=== PATIENT | male | born 1990 | race Caucasian/White ===

== ENCOUNTER 2016-06-02 14:32 | Inpatient (IN) | payer OTHER ==
[~2016-06-02] VITALS: Ht 177.8 cm; Wt 62.6 kg
--- NOTE | 2016-06-02 14:46 | NUR ---
RECEIVED 25 YO MALE BIBA. PT WAS PASSEN[place] IN CAR ON [address] WITH HIS MOTHER DRIVING WHEN HE REPORTEDLY HAD SEIZURE LIKE ACTIVITY. ACCORDING TO REPORT, PT DID NOT HAVE A POST ICTAL STATE. PT ADMITS TO DRINKING ETOH DAILY AND DID NOT HAVE ANY ALCOHOL X 2 DAYS. PT ALSO TAKES XANAX 4 MG EVERY DAY AND HAS NOT TAKEN ANY XANAX X 4 DAYS BECAUSE HE RAN OUT. PT EVALUATED BY VERÓNICA اعلراقي UPON ARRIVAL
--- NOTE | 2016-06-02 14:51 | ED AMS/SEIZURE/WEAK/DIZZY ---
History of Present Illness General Chief Complaint: General Adult Stated Complaint: BIBA FOR ?SEIZURE LIKE ACTIVITY Source: patient, EMS Exam Limitations: no limitations Vital Signs & Intake/Output Vital Signs & Intake/Output Vital Signs Date Time Temp Pulse Resp B/P Pulse O2 O2 Flow FiO2 Ox Delivery Rate 06/04 1100 98.0 147 26 168/103 06/04 1000 97.8 122 22 161/88 / 0947 97.8 122 20 161/84 / 0938 97.8 122 20 161/84 / 0900 97.8 122 20 161/84 /03 0800 97.8 114 30 162/94 / 0800 97.8 114 30 162/94 100 Room Air Room Air 06/04 0800 100 Room Air Room Air 06/04 0745 97.8 122 22 160/88 / 0600 98.7 140 28 164/110 / 0400 98.1 124 22 165/85 06/04 0347 98.0 108 24 170/90 98 Room Air 06/03 2327 98.3 100 20 142/92 97 Room Air 06/03 1645 98.2 101 19 144/94 98 Room Air ED Intake and Output 06/04 0000 06/03 1200 Intake Total 0 1400 Output Total Balance 2049 1400 Intake, IV 1000 1000 Intake, Oral 1050 400 Allergies Coded Allergies: No Known Allergies (06/02/16) Reconcile Medications Alprazolam (Xanax) 1 MG TABLET 1 TAB PO TID ANXIETY (Reported) Fluoxetine HCl 20 MG TABLET 1 TAB PO Q8 ANXIETY (Reported) Zolpidem Tartrate (Ambien) 5 MG TABLET 1 TAB PO QPMP SLEEP AID (Reported) Triage Note: RECEIVED 25 YO MALE BIBA. PT WAS [place]EN[place] IN CAR ON [address] WITH HIS MOTHER DRIVING WHEN HE REPORTEDLY HAD SEIZURE LIKE ACTIVITY. ACCORDING TO REPORT, PT DID NOT HAVE A POST ICTAL STATE. PT ADMITS TO DRINKING ETOH DAILY AND DID NOT HAVE ANY ALCOHOL X 2 DAYS. PT ALSO TAKES XANAX 4 MG EVERY DAY AND HAS NOT TAKEN ANY XANAX X 4 DAYS BECAUSE HE RAN OUT. PT EVALUATED BY VERÓNICA العراقي UPON ARRIVAL Triage Nurses Notes Reviewed? yes HPI: Prior to arrival this 25-year-old male was in the car with his mother driving when he had a sudden episode of flashing bright lights and then loss of consciousness. According to mother, from what EMS is said, he had seizure-like activity which generalized shaking that lasted a few minutes. Patient states he had no recollection of the events and woke up confused and nauseous. He vomited once on arrival here. He states that he has no medical problems however he continued to himself an alcoholic, drinking daily about a handful of vodka he splits with his girlfriend, he also takes Xanax which is prescribed to him 4 mg per day. He has not had drinking 2 days and has not had any Xanax for 4 days since he ran out of his prescription. He denies any other illicit drug use, he has history of opioid abuse when he was 18 years old but none recently. He has no seizure history. He has a moderate to severe headache, there was no trauma. He has no confusion at this time and no other muscle skeletal pain or injury. (JEVON KNIGHT) Past History Travel History Traveled to [place] past 21 day No Medical History Any Pertinent Medical History? see below for history Psychiatric: alcohol dependence, anxiety, opioid dependence Surgical History Surgical History: none Family History Hx Contributory? No (JEVON KNIGHT) Review of Systems Review of Systems Constitutional: Reports: see HPI. EENTM: Reports: no symptoms. Respiratory: Reports: no symptoms. Cardiovascular: Reports: no symptoms. GI: Reports: no symptoms. Genitourinary: Reports: no symptoms. Musculoskeletal: Reports: no symptoms. Skin: Reports: no symptoms. Neurological/Psychological: Reports: see HPI. Hematologic/Endocrine: Reports: no symptoms. Immunologic/Allergic: Reports: no symptoms. All Other Systems: Reviewed and Negative (JEVON KNIGHT) Physical Exam Physical Exam General Appearance: well developed/nourished Comments: Well-developed well-nourished person in no acute distress HEENT: Normal EENT exam, extraocular motion intact, no nystagmus. Pupils equally round and reactive to light. Nose is atraumatic. External auditory canal and Tympanic membranes clear. Pharynx normal. No swelling or edema. Neck: Supple, no lymphadenopathy, normal range of motion without pain or tenderness Back: Nontender, no CVA tenderness. Full range of motion Cardiovascular: Regular rate and rhythms no murmurs, normal JVP Respiratory: Chest nontender. No respiratory distress. Breath sounds clear to auscultation bilaterally Abdomen: Soft, nontender nondistended, no appreciable organomegaly. Normal bowel sounds. No ascites Extremity: No edema, no calf tenderness to palpation, normal and equal pulses. Neuro: Alert oriented x3, appears mildly lethargic, able to answer questions fully, motor sensory normal, cranial nerves II through XII grossly intact. Skin: No appreciable rash on exposed skin, skin is warm and dry. Psych: Mood and affect is normal, memory and judgment is normal. Core Measures ACS in differential dx? No CVA/TIA Diagnosis: No Severe Sepsis Present: No Septic Shock Present: No (KAITLIN العراقي,JEVON) Progress Differential Diagnosis: arrythmia, alcohol intoxication, anemia, benign positional vertigo, CVA/stroke, dehydration, drug intoxication, encephalitis, electrolyte imbalance, GI bleed, hypoglycemia, hypoxia, intracranial Hem., intracranial mass/tumor, labrynthitis, meningitis, Meniere's disease, migraine REILLY, multiple sclerosis, pneumonia, postural hypotension, presyncope, post- traumatic vertigo, sepsis, seizure disorder, subarachnoid Hem., UTI/pyelo, vertebrobasilar insuff Plan of Care: Orders Procedure Date/time Status EKG 06/05 0600 Active LACTIC ACID 06/04 1635 Active ARTERIAL BLOOD GAS (GEN) 06/04 1432 Complete CREATINE PHOSPHOKINASE 06/04 1427 Active BASIC ELECTROLYTES PLUS BUN&CR 06/04 1427 Active LACTIC ACID 06/04 1335 Active ICU LAB BUNDLE 06/04 1335 Active CREATINE PHOSPHOKINASE 06/04 1335 Active Restraint- Behavioral (Initial 06/04 1240 Active Change service to 06/04 0841 Active Restraint- Medical 06/04 0817 Active Restraint- Behavioral (Initial 06/04 0817 Active EKG 06/04 0725 Active MAGNESIUM 06/04 0640 Complete ACTIVE SURVEILLANCE NARES 06/04 0436 Active Transfer Disposition 06/04 0349 Active Transfer patient to 06/04 0227 Active Restraint- Discontinue 06/04 0052 Active Lab Add-on Test 06/04 UNK Active Patient Safety Monitor 06/04 UNK Active Restraint- Medical 06/04 UNK Complete Restraint- Behavioral (Initial 06/04 UNK Complete Nursing Misc 06/04 UNK Active Patient Safety Monitor 06/03 UNK Complete Current Medications Sig/Yissel Start time Last Medication Dose Stop Time Status Admin Non-Formulary 0 SEE ADMIN CRITERIA 06/04 1345 UNVr Medication (NON FORMULARY) Folic Acid 1 MG DAILY 06/04 1259 AC (Folic Acid) Multivitamins 1 TAB DAILY 06/04 1259 AC (Theragran Vitamins) Thiamine HCl 100 MG DAILY 06/04 1259 AC (Vitamin B-1) 06/06 1012 Sodium Chloride 100 ML (Normal Saline 0.9%) Haloperidol 2.5 MG ONCE ONE 06/04 1200 CAN (Haldol 2MG Tablet) 06/04 1201 Nicotine 7 MG DAILY 06/04 1000 CAN (Nicotine Cq) Lorazepam 100 MG Q24H 06/04 0945 CAN (Ativan Drip) Sodium Chloride 1,000 ML (Normal Saline 0.9%) Laboratory Tests 06/04/16 1440: pH 7.40, pCO2 38, pO2 98, HCO3 23, ABG O2 Sat (Measured) 97.0, P-50 (Temp Corrected) NO, Carboxyhemoglobin 0.3 L, O2 Concentration % RA, Temperature 98.0 , O2 Delivery Method RA, Phlebotomy Draw Site RIGHT RADIAL 06/04/16 0640: Anion Gap 16, Estimated GFR > 60, BUN/Creatinine Ratio 13.8, Magnesium 1.9, Total Bilirubin 0.8, Direct Bilirubin 0.4, AST 256 H, ALT 167 H, Alkaline Phosphatase 95, Total Protein 7.7, Albumin 4.8, CBC w Diff NO MAN DIFF REQ, RBC 4.81, MCV 94.8 H, MCH 33.3 H, RDW 14.1, MPV 7.9, Gran % 72.6, Lymphocytes % 15.2 L, Monocytes % 11.7 H, Eosinophils % 0.1, Basophils % 0.4, Absolute Granulocytes 4.1, Absolute Lymphocytes 0.9 L, Absolute Monocytes 0.7 H, Absolute Eosinophils 0, Absolute Basophils 0, PUBS MCHC 35.1 Microbiology 06/04 0445 UPPER RESP: Surveillance Culture - RECD Initial ED EKG: none Comments: Treated with 4 mg IV Zofran, 1 mg IV Ativan for alcohol withdrawal symptoms and 2 L of IV fluid for elevated anion gap likely secondary to alcoholism. Patient expressed interest in stopping using alcohol and would like to be admitted to the hospital. Had a discussion with patient and family, their agreement with plan, he'll be admitted to the medical service. Discussed with Dr. cui (JEVON KNIGHT) Departure Departure Disposition: STILL A PATIENT Condition: Stable Clinical Impression Primary Impression: Alcohol withdrawal seizure Qualifiers: Complication of substance-induced condition: uncomplicated Qualified Code: F10.230 - Alcohol dependence with withdrawal, uncomplicated Secondary Impressions: High anion gap metabolic acidosis, Transaminitis Referred to [facility] as new patient No Departure Forms: Customer Survey General Discharge Information Admission Note Spoke With: SATISH WATTS M.D Documentation of Exam: Documentation of any treatments & extenuating circumstances including Concerns Regarding Discharge (functional status, medication knowledge or non-compliance, living conditions, etc.) that warrant an admission rather than observation: Patient with new onset alcohol withdrawal seizure, expressed interest in wanting to stop drinking which is why he has abstained from alcohol the last 2 days. Had an alcohol withdrawal seizure and requires admission, IV Ativan, further monitoring and counseling. He is at risk for further seizure. Also noted to have an elevated anion gap, likely alcohol-induced transaminitis requires IV fluids and monitoring. (JEVON KNIGHT) PA/OFFAL BALER Co-Sign Statement Statement: ED Attending supervision documentation- [X] I saw and evaluated the patient. I have also reviewed all the pertinent lab results and diagnostic results. I agree with the findings and the plan of care as documented in the PA's/OFFAL BALER's documentation. [X] I have reviewed the ED Record and agree with the PA's/OFFAL BALER's documentation. [] Additions or exceptions (if any) to the PAs/OFFAL BALER's note and plan are summarized below: [] (YUDITH SILVA,JAMAL)
[2016-06-02 15:01] LABS: ABSOLUTE BASOPHIL COUNT 0 /CUMM (0.0-0.2); ABSOLUTE EOSINOPHIL COUNT 0 /CUMM (0.0-0.7); ABSOLUTE GRANULOCYTE CT 8.2 /CUMM (1.4-6.5); ABSOLUTE LYMPH COUNT 0.9 /CUMM (1.2-3.4); ABSOLUTE MONOCYTE COUNT 0.6 /CUMM (0.10-0.60); BASOPHIL % 0 % (0.0-2.0); EOSINOPHIL % 0.1 % (0-5); GRANULOCYTE % 84.6 % (42.2-75.2); HEMATOCRIT 49.8 % (42-52); MEAN CORPUSCULAR HGB CONC 34.5 G/DL (33.0-37.0); MEAN CORPUSCULAR VOLUME 95.6 FL (80.0-94.0); MEAN PLATELET VOLUME 7.4 FL (7.4-10.4); PLATELET COUNT 162 /CUMM (130-400); RBC DISTRIBUTION WIDTH 14.6 % (11.5-14.5); RED BLOOD CELL CT 5.21 /CUMM (4.70-6.10); WHITE BLOOD CELL COUNT 9.6 /CUMM (4.8-10.8)
--- NOTE | 2016-06-02 15:45 | NUR ---
URINE SPEC. SENT TO LAB
--- NOTE | 2016-06-02 15:52 | NUR ---
PT CHANGING INTO GOWN FIRST LITER INFUSED WITHOUT DIFFICULTY
--- NOTE | 2016-06-02 16:00 | NUR ---
2ND LITER OF FLUID INFUSING DIRECTED
--- NOTE | 2016-06-02 17:15 | NUR ---
PT GIVEN TORADOL FOR REILLY HOUSE STAFF IN ROOM FOR EVAL
--- NOTE | 2016-06-02 17:16 | NUR ---
PT ADMITTED TO ROOM 210-2
--- NOTE | 2016-06-02 17:31 | Admission Certification ---
Admission Certification Certification Statement - As attending physician, I certify that at the time of - admission, based on clinical presentation, severity of - symptoms, need for further diagnostic testing and - therapeutic interventions, and risk of adverse outcomes - without in-hospital treatment, in my clinical assessment, - this patient requires an acute hospital stay for a minimum - of two nights or longer. I have also considered psychsocial - factors such as support system, advanced age, financial - issues, cognitive issues, and failed out-patient treatments, - past re-admission history, safety of patient, and lack of - compliance as applicable. Specific rationale supporting this admission is: Patient requires intravenous benzodiazepine therapy for management of his alcohol and possible benzodiazepine withdrawal.
--- NOTE | 2016-06-02 17:42 | History & Physical ---
General Information and HPI Allergies/Medications Allergies: Coded Allergies: No Known Allergies (06/02/16) Past History Travel History Traveled to [place] past 21 day No Medical History Psychiatric: alcohol dependence, anxiety, opioid dependence Surgical History Surgical History: none Past Family/Social History Psychosocial History ETOH Use: alcoholic
--- NOTE | 2016-06-02 17:44 | History & Physical ---
HERMINIA SILVA,HAYLEY 06/02/16 1744: General Information and HPI MD Statement: seizure Source of Information: patient, family Exam Limitations: no limitations History of Present Illness: This is a 25-year-old male with past medical history significant for anxiety, depression, suicidal ideation, multiple admissions for drug and alcohol rehabilitation and comes with chief complaint of seizure. Patient was in car with his mother who witnessed the event. She states she noticed him becoming rigid in his upper extremities and start shaking. She also states that his eyes rolled back and that he seemed to be choking; additionally, at that time he was unresponsive and seemed confused afterwards. Entire event lasted around 1 minute. Upon further questioning of the patient he states that prior to the episode he remembers feeling lightheaded and hot, he felt like he was breaking into a sweat, he denies any bowel or bladder loss. His last alcoholic drink was yesterday. Pt states that he drinks 4-5 shots of whiskey a day. He has been to rehabilitation 3 times to address his substance abuse. He also states that he takes Xanax, which is prescribed by psychiatrist, for severe anxiety 3-4 times a day. He did admit that he probably took more than 3 as he ran out of his medication earlier than expected this month. He also endorses frequent usage of marijuana. Denies use of heroin, pills, or any other substances. He endorses severe anxiety and depression. Denies current suicidal or homicidal ideation but admits he used to cut and had severe depression leading to suicidal ideation. Denies headaches, blurred vision, shortness of breath, abdominal pain , or palpitations outside of episodes of severe anxiety. He endorses nausea, diarrhea (loose stool up to 2 times a day), vomiting, abdominal discomfort, hematochezia, melena, or hematuria. He states over the past several months she' s had a 40 pound unintentional weight loss. He states that he is unable to keep food down due to nausea and vomiting. He does endorse history of lactose intolerance but denies any other food allergy. He states he does have interest in eating but is unable to keep food down. He denies any sick contacts, recent travel other than [place], or any significant change in his routine. He states he was last tested for HIV and hepatitis C several months ago and they were both negative Allergies/Medications Allergies: Coded Allergies: No Known Allergies (06/02/16) Past History Travel History Traveled to [place] past 21 day No Medical History Gastrointestinal: lactose intolerance Psychiatric: alcohol dependence, anxiety, depression, IV drug abuse, opioid dependence, substance abuse Surgical History Surgical History: none Past Family/Social History Psychosocial History Primary Language: French ETOH Use: alcoholic Functional Ability ADLs Independent: dressing, eating, toileting, bathing. Ambulation: independent IADLs Independent: shopping, housework, finances, food prep, telephone, transportation , medication admin. Review of Systems Review of Systems Constitutional: Reports: malaise, unexplained weight loss. Denies: chills, diaphoresis, fever. EENTM: Denies: blurred vision, visual changes. Cardiovascular: Reports: palpitations. Denies: chest pain, edema, orthopena, peripheral edema, syncope. Respiratory: Denies: short of breath, wheezing. GI: Reports: diarrhea, nausea, changes in stool, vomiting. Denies: abdominal pain, bloody stool. Genitourinary: Denies: dysuria, frequency, hematuria, hesitation, pain, urgency. Musculoskeletal: Denies: joint pain. Skin: Reports: no symptoms. Neurological/Psychological: Reports: anxiety, depressed, emotional problems, tonic-clonic seizures. Hematologic/Endocrine: Reports: no symptoms. Exam & Diagnostic Data Last 24 Hrs of Vital Signs/I&O Vital Signs Date Time Temp Pulse Resp B/P Pulse O2 O2 Flow FiO2 Ox Delivery Rate 06/02 1821 98.1 84 19 148/90 97 Room Air 06/02 1728 98.3 83 16 151/92 99 Room Air 06/02 1551 99 06/02 1440 122/78 06/02 1433 96.0 112 20 98 Room Air Intake & Output 06/02 1600 06/02 0800 06/02 0000 Intake Total 1000 Output Total Balance 1000 Intake, IV 1000 Patient 68.039 kg Weight Physical Exam General Appearance Alert, Oriented X3, Cooperative, No Acute Distress Skin patient has significant amount of tattoos. Scars from cutting on his right upper extremity. HEENT Atraumatic, PERRLA, EOMI, Mucous Membr. moist/pink Neck Supple, No JVD Cardiovascular Regular Rate, Normal S1, Normal S2, No Murmurs, Gallops Lungs Normal Air Movement Abdomen Normal Bowel Sounds, Soft, No Tenderness, No Masses Neurological Normal Speech, Strength at 5/5 X4 Ext, Normal Tone, Sensation Intact, Cranial Nerves 3-12 NL, MMSE wnl Extremities No Cyanosis, No Edema, Normal Pulses Last 24 Hrs of Labs/Cameron: Laboratory Tests 06/02/16 2200: Lactic Acid Pending 06/02/16 1545: Urine Opiates Screen < 100.00, Methadone Screen < 40, Barbiturate Screen < 60, Ur Phencyclidine Scrn < 6.00, Amphetamines Screen < 100, U Benzodiazepines Scrn < 85, Urine Cocaine Screen < 50, Urine Cannabis Screen > 80.00 H 06/02/16 1542: Urine Color YEL, Urine Clarity CLEAR, Urine pH 6.0, Ur Specific [place] >= 1.030 , Urine Protein 100 H, Urine Ketones 15 H, Urine Nitrite NEG, Urine Bilirubin NEG, Urine Urobilinogen 0.2, Ur Leukocyte Esterase NEG, Ur Microscopic SEDIMENT EXAMINED, Urine RBC RARE, Ur Epithelial Cells RARE, Urine Mucus RARE, Urine Hemoglobin MOD H, Urine Glucose 100 H 06/02/16 1447: Anion Gap 24 H, Estimated GFR > 60, BUN/Creatinine Ratio 11.3, Glucose 177 H, Calcium 9.0, Magnesium 2.2, Total Bilirubin 1.0, AST 279 H, ALT 206 H, Alkaline Phosphatase 117, Total Protein 7.9, Albumin 5.0, Globulin 2.9, Albumin/ Globulin Ratio 1.7, Amylase 81, Lipase 82, CBC w Diff MAN DIFF ORDERED, RBC 5.21 , MCV 95.6 H, MCH 33.0 H, RDW 14.6 H, MPV 7.4, Gran % 84.6 H, Lymphocytes % 9.3 L, Monocytes % 6.0, Eosinophils % 0.1, Basophils % 0 L, Absolute Granulocytes 8.2 H, Absolute Lymphocytes 0.9 L, Absolute Monocytes 0.6, Absolute Eosinophils 0, Absolute Basophils 0, Platelet Estimate VERIFIED BY SMEAR, Normocytic RBCs VERIFIED, Normochromic RBCs VERIFIED, PUBS MCHC 34.5, Serum Alcohol < 10.0 Assessment/Plan Assessment: 25-year-old male with past medical history significant for depression, anxiety, substance abuse, multiple admissions at rehabilitation for prescription narcotics, cannabis, alcohol, and heroin, who presents with chief complaint of seizure. Incidentally, during workup he mentioned 40 pound weight loss of unknown etiology, and he endorses chronic nausea vomiting and diarrhea. Initial ED workup showed: Temperature 96.0, pulse 112, respiration 20, blood pressure 122/78 and pulse ox 98. U tox positive for cannabis. Urine protein 100, urine ketones 15. Moderate urine hemoglobin, 100+ urine glucose. AST 279, ALT 206. Magnesium 2.2 calcium 9.0. Glucose 177. BEP shows sodium 136, potassium 3.7, CO2 15, BUN 9, creatinine 0.8. Gap of 24. CBC showed white count 9.6, hemoglobin 17.2, hematocrit 49.8, platelet count 162. MCV 95.6. ------ PLAN: Seizure: Patient denies any previous history or family history of seizures. The patient's mother, who witnessed the seizure, states that he was sitting in car and his arms became rigid and start to shake, eyes rolled upward and he was unresponsive for about 1 minute. She states he only had one episode. Unsure of etiology. * Possibly secondary to alcohol withdrawal or benzodiazepine withdrawal * [facility] protocol Anion gap metabolic acidosis: Patient is sodium 136, bicarbonate 15, with a gap 24. He has an anion gap metabolic acidosis. DDX: Chronic nausea vomiting, alcohol, patient denies any other ingestion. Given that blood sugars 177, currently DKA not high on differential. * Hydrated with LR at 125 mL per hour * Monitor gap in a.m. * Check amylase * Lactic acid Depression and History of suicidal ideation: Patient states that he has had previous history of suicidal ideation. He has scars from cutting on his left upper extremity. Currently, he denies any suicidal or homicidal ideation. He states he is better since starting his fluoxetine. However patient does have 40 pound weight loss the past month, he does state he has severe anxiety and does endorse persistent symptoms of depression. He also states he has difficulty sleeping. * Psych consult in a.m. * Continue fluoxetine * Continue home Ambien 40 pound unintentional weight loss: Patient endorses a 40 pound unintentional weight loss over the past 3-4 months. He states that he has had nausea, vomiting, and loose stools up to twice a day. He does have a history of lactose intolerance. He is started fluoxetine in the past 4 months. Unsure if weight loss associated with structural/functional GI dysfunction or psychiatric/ substance related causes. * Consider GI consult * Monitor food intake * Consider HIV and hep C serology Transaminitis: Patient has history of alcohol use and abuse. He states he drinks 3-4 shots every day. His AST is 279 and ALT 206. While not the classic 2:1 AST ALT ratio, AST is still elevated over ALT. Most likely transaminitis secondary to alcoholic hepatitis. * Right upper quadrant ultrasound Nausea and vomiting: Patient states that he has had 3-4 month history of nausea vomiting and GI upset. He states that he does have lactose intolerance since infancy, however he is now had 40 pound weight loss since as he has been unable to keep food down. He says that his nausea and vomiting constant and has not changed over the past few months. It is relieved by cannabis. * Zofran * Currently nothing by mouth * Continue lactated Ringer's Substance abuse: He has a long history of alcohol, and drug abuse. He states that he has been to rehabilitation 3 times. Most recently about a year and a half ago in [place]. He states at that time he was seen for alcohol and nonprescribed narcotic abuse. He states he does not use heroin currently. However he does have a history of heroin use about 6-7 years ago. At this time he states he rarely uses alcohol and marijuana. Alcohol negative daily basis and marijuana intermittently. He states that he "smokes from a bowl" 3-4 times a week and that it helps with his chronic nausea and vomiting. He quantifies his daily alcohol usage as 3-4 shots of whiskey a day. * CIWA protocol * Ativan 2 mg by mouth every 6 * Social work consult * Consider psych consult * Hold home Xanax as patient is on Ativan here As Ranked By This Provider Problem List: 1. Transaminitis 2. High anion gap metabolic acidosis 3. Alcohol withdrawal seizure Qualifiers Complication of substance-induced condition: uncomplicated Qualified Code: F10.230 - Alcohol dependence with withdrawal, uncomplicated Core Measures/Miscellaneous Acute Coronary Syndrome ACS Diagnosis: No Cerebrovascular Accident CVA/TIA Diagnosis: No Congestive Heart Failure CHF Diagnosis: No Venous Thromboembolism VTE Risk Factors: Acute medical illness VTE Prophylaxis Ordered Inpt: Pharm- Lovenox No Mech VTE prophylaxis d/t: No contraindications No VTE Pharm Prophylaxis d/t: No contraindications VTE Diagnosis: No VTE Type: NONE VTE Confirmed by (Test): NONE Severe Sepsis Severe Sepsis Present: No Septic Shock Septic Shock Present: No Miscellaneous Documentation Attending Case Discussed With: SATISH WATTS M.D Primary Care Physician: AL KRISHNA MD Patient sees these Specialists none Level of Patient Care: General Medicine SATISH WATTS MD 06/02/16 1747: Attending MD Review Statement Attending Statement Attending MD Statement: examined this patient, discuss w/resident/PA/ELECTRONIC TECHNICIAN, agreed w/resident/PA/ELECTRONIC TECHNICIAN, discussed with family, reviewed EMR data (avail), discussed with nursing, amended to note Attending Assessment/Plan: 25-year-old male with history of alcohol abuse. Mother also reports history of abuse of OxyContin 42 patient was admitted to a drug rehabilitation program in [place] about 2 years ago. He is also on Xanax for anxiety disorder and mother reports that he has abused medication and used to run out of the medication frequently prior to refill date. Available to the ER for evaluation after he had a seizure while his mother was driving. He reports that his last alcohol intake was yesterday. He reports drinking on a daily basis. Mother states that patient has been trying to cut down his alcohol use. Patient however reports that he ran out of Xanax about 2 days ago and is not due for refill for another 4 days. Mother denies any previous history of seizures in the patient however patient reports that during his rehabilitation in [place] and was transferred to a hospital for what was thought to be a seizure witnessed at the rehabilitation facility. Patient reports that he was not diagnosed with seizures. Patient also reports nausea and vomiting on and off for the past few days. He reports that he is unable to keep his meals down but occasionally tolerates alcohol. He denies abdominal pain. Denies fever or chills. Denies diarrhea or constipation. On examination he is not agitated. He is not tremulous. His CIWA was not checked prior to being referred for inpatient admission. He has no signs of chronic liver disease on examination. He was cooperative. Review of labs reveal microcytosis, anion gap acidosis,, glucose level of 177 and transaminitis with AST/ALT of 279/206. Problems: 1. Seizure; secondary to combination of alcohol/benzodiazepine withdrawal. 2. History of prescription drug abuse; Xanax and previously OxyContin. 3. Alcoholic hepatitis 4. Anion gap acidosis; likely secondary to starvation ketosis Plan: -Admit to the general medical service. -Neuro watch every 4 hours. Fall and seizure precautions. -Hydrate with lactated Ringer's at 125 mL an hour -Please on CIWA protocol. Administer Ativan 2 mg orally every 6 hours in addition to when necessary IV Ativan. -Do not administer Xanax while patient is on Ativan. -Check amylase lipase levels to rule out pancreatitis as etiology of his recurrent vomiting. -Obtain right upper quadrant sonogram and viral hepatitis panel to further evaluate his transaminitis. -Antiemetic therapy with Zofran [id number] till nausea abates. -DVT prophylaxis with heparin subcutaneous. -precision optical goods worker consultation for out - patient rehabilitation referral. SUSAN SANCHEZ 06/02/161811: General Information and HPI MD Statement: I have seen and personally examined JEVON JAMA Ana Lilia LEAHY and documented this H&P. The patient is a 25 year old M who presented with a patient stated chief complaint of []. Allergies/Medications Home Med list Alprazolam (Xanax) 1 MG TABLET 1 TAB PO TID ANXIETY (Reported) Fluoxetine HCl 20 MG TABLET 1 TAB PO Q8 ANXIETY (Reported) Zolpidem Tartrate (Ambien) 5 MG TABLET 1 TAB PO QPMP SLEEP AID (Reported) Resident Review Statement Resident Statement: examined this patient, discussed with operations intern, agreed with operations intern, discussed with family, reviewed EMR data (avail) Other Findings: ia a 25-year-old man with past medical history significant for alcohol detox, drug abuse with multiple admissions for detox, and anxiety, panic attack, suicidal ideation with suicidal attempt 6 months ago, lactose intolerance presented to emergency department after he had tonic-clonic seizure while he was in car with his mother. Patient developed a seizure while his mother driving, mother stopped the car immediately and she called EMS who brought the patient to emergency department. According to the mother the episode lasted for 30 seconds to 1 minute associated with eye rolling, weired sound from his mouth with some secretions, no tongue biting, he lost his consciousness. According to patient he was confused after the episode, and he is completely unaware of the events, he reports flashes of light in both eyes prior to the episode. He developed headache 8/10 in severity , mainly in the frontal area and the back of the eyes, not radiating. He drinks alcohol every day mainly whiskey 3-4 shots daily and he also smoked marijuana 3-4 times a week, his last drink was yesterday. Patient also reports weight loss over the last month about 40 pound unintentional, he had chronic nausea and vomiting every day over the last month with loss of appetite. Remains of the history as above. Vitals at admission: Tmax 96, pulse 112, RR 20, BP 122/78, he saturating 98% room air Examination as above Labs pertinent to: AST 279, ALT 206, alk phosphatase 117 Urine toxicology: Positive cannabis more than 80 Urine analysis positive for protein, ketones, hemoglobin, and glucose Assessment and plan: -Seizure secondary to alcohol withdrawal VS benzodiazepine withdrawal -Transaminitis could be secondary to EtOH -Weight loss, nausea, vomiting which could be secondary to his history of lactose intolerance, or another unclear a Trilogy Plan: We'll admit the patient to general medicine floor We'll start CIWA protocol By mouth Ativan [id number] IV Ativan as needed Right upper quadrant ultrasound Amylase and lipase to rule out pancreatitis Would resume his home medication except Xanax Consider Psych evaluation at am given recent (about 6 months ago) suicidal attempt. Social work consult NPO Subcutaneous heparin for DVT prophylaxis Full code
--- NOTE | 2016-06-02 17:48 | NUR ---
REPORT GIVEN TO ERIN SHAHSEED EXPERT CALLED
[2016-06-02 18:21] VITALS: BP 148/90
--- NOTE | 2016-06-02 18:30 | NUR ---
ADMISSION NOTE: PT ARRIVED TO FLOOR VIST STRETCHER WITH DISTRIBUTION AND MOTHER, A/OX3, ROOM AIR, IV SITE INTACT, MULTIPLE HORIZONTAL SCARS NOTED TO LEFT ARM FROM INTENTIONAL CUTTING 2 YRS AGO PER THE PATIENT AND HIS MOM, MINOR SCABS NOTED TO LEFT WRIST AND RIGHT KNUCKLE, OPEN TO AIR, SKIN INTACT OTHERWISE, PT ORIENTED TO ROOM, WELCOME FOLDER GIVEN VSS, ADMISSION COMPLETE, WILL CONTINUE TO MONITOR.
[2016-06-02] MEDS ORDERED: AMBIEN5 M1 PO (18:45)
[2016-06-02] MEDS ORDERED: XANAX1 M1 PO (18:46)
[2016-06-02] MEDS ORDERED: FLUOXETINE HCL20 M3 PO (18:46)
[2016-06-02 23:52] VITALS: BP 134/56
[2016-06-03 08:14] VITALS: BP 126/84
--- NOTE | 2016-06-03 09:17 | ULTRASOUND REPORT ---
EXAMINATION: ABDOMINAL ULTRASOUND LIMITED CLINICAL INFORMATION: Elevated LFTs. Transaminitis. COMPARISON: None. TECHNIQUE: Real-time imaging of the right upper quadrant abdominal viscera. FINDINGS: PANCREAS: The visualized pancreatic head and body are normal in appearance. The remainder of the pancreas is obscured from visualization by the overlying bowel gas. LIVER: The liver is of normal size and diffuse increased echogenicity without focal lesions nor intrahepatic biliary ductal dilation. GALLBLADDER: Normal. The gallbladder is physiologically distended without evidence of stones, sludge, polyps, wall thickening or pericholecystic fluid. COMMON BILE DUCT: Normal in caliber measuring 0.2 cm in diameter. RIGHT KIDNEY: Normal. No hydronephrosis. No renal calculi or focal parenchymal lesions. The kidney measures 10.4 cm in maximum dimension. FREE FLUID: None. IMPRESSION: Liver of diffuse increased echogenicity without focal lesions. The appearance is nonspecific, but consistent with fatty infiltration. Neither cholelithiasis nor cholecystitis.
--- NOTE | 2016-06-03 12:12 | PN- Housestaff ---
HERMINIA SILVA,HAYLEY 06/03/16 1156: Subjective Follow-up For: Seizures Unintentional weight loss Subjective: Saw patient at bedside this a.m. He stated he hadn't slept all night despite taking Ambien and melatonin. He stated he was tired. Otherwise he denies any other acute events or complaints. Review of Systems Constitutional: Denies: chills, fever, weakness. EENTM: Denies: blurred vision, visual changes. Cardiovascular: Denies: chest pain, palpitations. Respiratory: Denies: cough, short of breath. Gastrointestinal: Denies: abdominal pain, constipation, nausea, vomiting. Genitourinary: Reports: no symptoms. Musculoskeletal: Reports: no symptoms. Skin: Reports: no symptoms. Objective Last 24 Hrs of Vital Signs/I&O Vital Signs Date Time Temp Pulse Resp B/P Pulse O2 O2 Flow FiO2 Ox Delivery Rate 06/03 0814 98.1 66 20 126/84 98 06/02 2352 97.6 73 20 134/56 97 Room Air 06/02 1821 98.1 84 19 148/90 97 Room Air 06/02 1728 98.3 83 16 151/92 99 Room Air 06/02 1551 99 06/02 1440 122/78 06/02 1433 96.0 112 20 98 Room Air Intake & Output 06/03 1600 06/03 0800 06/03 0000 Intake Total 1400 1300 Output Total Balance 1400 1300 Intake, IV 1000 1000 Intake, Oral 400 300 Patient 62.596 kg Weight Physical Exam General Appearance: Alert, Oriented X3, Cooperative, No Acute Distress Skin: No Rashes, No Breakdown, No Significant Lesion HEENT: Atraumatic, PERRLA, EOMI Neck: Supple Cardiovascular: Regular Rate, Normal S1, Normal S2, No Murmurs Lungs: Clear to Auscultation, Normal Air Movement Abdomen: Soft, No Tenderness Neurological: Normal Gait, Normal Speech, Sensation Intact, Cranial Nerves 3-12 NL Extremities: No Clubbing, No Cyanosis, No Edema, Normal Pulses Current Medications: Current Medications Sig/Yissel Start time Last Medication Dose Route Stop Time Status Admin Cyanocobalamin/ 1 BAG ONCE ONE 06/03 1045 AC 06/03 Thiamine/Pyridoxine IV 06/03 1844 1146 Sodium Chloride 1,000 ML Fluoxetine HCl 60 MG DAILY 06/03 1000 AC 06/03 PO 0916 Heparin Sodium 5,000 UNIT Q8 06/02 2200 AC (Porcine) SC Influenza Virus 0.5 ML ONCE ONE 06/02 1845 DC Vaccine IM 06/02 1846 Ketorolac 30 MG ONCE ONE 06/02 1715 DC 06/02 Tromethamine IV 06/02 1716 1714 Ketorolac 0 .STK-MED ONE 06/02 1712 DC Tromethamine .ROUTE Lactated Ringer's 1,000 ML Q8H 06/02 1845 DC 06/03 IV 1038 Lorazepam 2 MG Q6 06/02 1833 AC 06/03 PO 1145 Lorazepam See Dose Q1P PRN 06/02 1830 AC Insts (1) IV Lorazepam 0 .STK-MED ONE 06/02 1446 DC .ROUTE Lorazepam 1 MG ONCE ONE 06/02 1445 DC 06/02 IV 06/02 1446 1449 Melatonin 5 MG AT BEDTIME 06/03 0030 AC 06/03 PO 0032 Nicotine 7 MG DAILY 06/04 1000 AC TOP Nicotine 14 MG DAILY 06/03 1000 DC 06/03 TOP 0916 Ondansetron HCl 4 MG BID 06/03 220 AC PO Ondansetron HCl 4 MG Q6 06/02 2359 DC 06/03 IV 0529 Ondansetron HCl 4 MG ONCE ONE 06/02 1445 DC 06/02 IV 06/02 1446 1449 Ondansetron HCl 0 .STK-MED ONE 06/02 1440 DC .ROUTE Sodium Chloride 1,000 ML BOLUS ONE 06/02 1600 DC 06/02 IV 06/02 1659 1553 Sodium Chloride 1,000 ML BOLUS ONE 06/02 1445 DC 06/02 IV 06/02 1544 1449 Zolpidem Tartrate 5 MG AT BEDTIME NEED.. 06/02 2200 AC 06/02 PO 2031 Dose Instructions: (1)Lorazepam: See admin criteria Last 24 Hrs of Lab/Cameron Results Last 24 Hrs of Labs/Mics: Laboratory Tests 06/03/16 0701: Anion Gap 13, Estimated GFR > 60, BUN/Creatinine Ratio 10.0, Phosphorus 3.2, Magnesium 1.9, Total Bilirubin 1.3, Direct Bilirubin 0.4, AST 199 H, ALT 165 H , Alkaline Phosphatase 93, Total Protein 7.1, Albumin 4.5, Hepatitis A IgM Ab NONREACTIVE, Hep Bs Antigen NONREACTIVE, Hep B Core IgM Ab Conf NONREACTIVE, Hepatitis C Antibody NONREACTIVE 06/02/16 2200: Lactic Acid 1.3 06/02/16 1545: Urine Opiates Screen < 100.00, Methadone Screen < 40, Barbiturate Screen < 60, Ur Phencyclidine Scrn < 6.00, Amphetamines Screen < 100, U Benzodiazepines Scrn < 85, Urine Cocaine Screen < 50, Urine Cannabis Screen > 80.00 H 06/02/16 1542: Urine Color YEL, Urine Clarity CLEAR, Urine pH 6.0, Ur Specific [place] >= 1.030 , Urine Protein 100 H, Urine Ketones 15 H, Urine Nitrite NEG, Urine Bilirubin NEG, Urine Urobilinogen 0.2, Ur Leukocyte Esterase NEG, Ur Microscopic SEDIMENT EXAMINED, Urine RBC RARE, Ur Epithelial Cells RARE, Urine Mucus RARE, Urine Hemoglobin MOD H, Urine Glucose 100 H 06/02/16 1447: Anion Gap 24 H, Estimated GFR > 60, BUN/Creatinine Ratio 11.3, Glucose 177 H, Calcium 9.0, Magnesium 2.2, Total Bilirubin 1.0, AST 279 H, ALT 206 H, Alkaline Phosphatase 117, Total Protein 7.9, Albumin 5.0, Globulin 2.9, Albumin/ Globulin Ratio 1.7, Amylase 81, Lipase 82, CBC w Diff MAN DIFF ORDERED, RBC 5.21 , MCV 95.6 H, MCH 33.0 H, RDW 14.6 H, MPV 7.4, Gran % 84.6 H, Lymphocytes % 9.3 L, Monocytes % 6.0, Eosinophils % 0.1, Basophils % 0 L, Absolute Granulocytes 8.2 H, Absolute Lymphocytes 0.9 L, Absolute Monocytes 0.6, Absolute Eosinophils 0, Absolute Basophils 0, Platelet Estimate VERIFIED BY SMEAR, Normocytic RBCs VERIFIED, Normochromic RBCs VERIFIED, PUBS MCHC 34.5, Serum Alcohol < 10.0 Assessment/Plan Assessment: 25-year-old male with past medical history significant for depression, anxiety, substance abuse, multiple admissions at rehabilitation for prescription narcotics, cannabis, alcohol, and heroin, who presents with CC seizure. Incidentally, during workup he mentioned 40 pound weight loss of unknown etiology, and he endorses chronic nausea vomiting and diarrhea. ------ PLAN: Seizure: She denies any previous history or family history of seizures. He states that he ran out of his Xanax prescription 3 days ago. He states his last alcohol intake was yesterday, however U tox showed serum alcohol less than 10. Patient states that every time he drinks he immediately vomits. * Possibly secondary to alcohol withdrawal or benzodiazepine withdrawal * CIWV protocol Anion gap metabolic acidosis: RESOLVED. Patient came in with sodium 136, bicarbonate 15, with a gap 24. Negative lactic acid. Today his has sodium 136, potassium 3.6, chloride 94, and gap 13. Solves with IV fluids. Likely secondary to alcohol and nausea, vomiting, poor by mouth intake. * Stop IVF * Resume regular diet Depression and History of suicidal ideation: Patient states that he has had previous history of suicidal ideation. He has scars from cutting on his left upper extremity. Currently, he denies any suicidal or homicidal ideation. He states he is better since starting his fluoxetine. However patient does have 40 pound weight loss the past month, he does state he has severe anxiety and does endorse persistent symptoms of depression. He also states he has difficulty sleeping. * Psych consult in a.m. * Continue fluoxetine * Continue home Ambien 40 pound unintentional weight loss: Patient endorses a 40 pound unintentional weight loss over the past 3-4 months. He states that he has had nausea, vomiting, and loose stools up to twice a day. He does have a history of lactose intolerance. He is started fluoxetine in the past 4 months. Unsure if weight loss associated with structural/functional GI dysfunction or psychiatric/ substance related causes. * Consider GI consult * Monitor food intake * Negative hepatitis serology * Pending HIV test Transaminitis: Patient has history of alcohol use and abuse. He states he drinks 3-4 shots every day. Today AST 199, ALT 165. While not the classic 2:1 AST ALT ratio, AST is still elevated over ALT. Most likely transaminitis secondary to alcoholic hepatitis. Right upper quadrant ultrasound shows "Liver of diffuse increased echogenicity without focal lesions. The appearance is nonspecific, but consistent with fatty infiltration." * Repeat LFTs in a.m. tomorrow Nausea and vomiting: Patient states that he has had 3-4 month history of nausea vomiting and GI upset. He states that he does have lactose intolerance since infancy, however he now has 40 pound weight loss as he has been unable to keep food down. He says that his nausea and vomiting constant and has not changed over the past few months. It is relieved by cannabis. * Zofran scheduled BID * Regular diet * DC IV fluids Substance abuse: He has a long history of alcohol, and drug abuse. He states that he has been to rehabilitation 3 times. Most recently about a year and a half ago in [place]. He states at that time he was seen for alcohol and nonprescribed narcotic abuse. He states he does not use heroin currently. However he does have a history of heroin use about 6-7 years ago. At this time he states he only uses alcohol and marijuana. Alcohol on a daily basis and marijuana intermittently. He states that he "smokes from a bowl" 3-4 times a week and that it helps with his chronic nausea and vomiting. He quantifies his daily alcohol usage as 3-4 shots of whiskey a day. * CIWA protocol * Ativan 2 mg by mouth every 6 * Social work consult * Consider psych consult * Hold home Xanax as patient is on Ativan here Problem List: 1. Alcohol withdrawal seizure 2. High anion gap metabolic acidosis 3. Transaminitis Pain Ratin Pain Location: none Pain Goal: Remain pain free Pain Plan: none Tomorrow's Labs & Rationales: none BERNARD SILVA,[facility] 06/03/16 1221: Attending MD Review Statement Attending Statement Attending MD Statement: examined this patient, discuss w/resident/PA/OIL WELL CABLE TOOL OPERATOR, agreed w/resident/PA/OIL WELL CABLE TOOL OPERATOR, discussed with family, reviewed EMR data (avail), discussed with nursing, reviewed images Attending Assessment/Plan: 25-year-old young male with a history of alcohol and narcotic analgesic abuse with underlying anxiety is being admitted on the floor for alcohol withdrawal and a new onset weakness seizure disorder. He was seen and examined on the bedside this morning and reports no active issues. Labs reviewed that showed microcytosis, hyperglycemia and elevated liver enzymes. Ultrasound of the liver shows increased echogenicity without focal lesions and consistent with fatty infiltration. He is presently on CIWA protocol with Ativan 2 mg orally every 6 hours in addition to ativan prn. His scheduled Ativan should be spaced out according to his CIWA protocol. Switch IV Zofran to oral will continue to have seizure and fall precautions. Social work consult in place and the patient is willing to join rehabilitation program after discharge.
[2016-06-03 16:45] VITALS: BP 144/94
--- NOTE | 2016-06-03 18:56 | NUR ---
LATE ENTRY: PT'S MOTHER NOTED TO BE PRESSING "HOLD" ON PT'S IV PUMP EVEN AFTER BEING ADVISED NOT TO. PT'S MOTHER REPORTING THAT HER SIGNIFICANT OTHER HAD RECENTLY PASSED AND WAS "IN THE ICU" AND SHE CANNOT TOLERATE "ANY BEEPING." PT'S FAMILY MEMBER RE-EDUCATED TO CALL FOR ASSIST IF IV PUMP STARTS BEEPING- PT'S MOTHER THEN APOLOGIZED. WILL CONT TO MONITOR.
--- NOTE | 2016-06-03 20:03 | NUR ---
PT GIVEN 2MG IV ATIVAN FOR ANXIETY, AGITATION, SWEATING, CLOUDING. WILL REQUEST ONE TO ONE SITTER FOR AGITATION, AND PULLING OUT LINES.
--- NOTE | 2016-06-03 21:18 | NUR ---
PT PULLED IV OUT. NEW IV PLACED, 2MG ATIVAN GIVEN, ONE TO ONE SITTER WITH PT. WILL CONTINUE TO MONITOR.
[2016-06-03 23:27] VITALS: BP 142/92
[2016-06-04] VITALS (22 sets, daily range): BP systolic 119–170; BP diastolic 64–110
--- NOTE | 2016-06-04 04:14 | NUR ---
AT START OF SHIFT 2300-PT DISORIENTED AND AGTITATED THROUGHOUT SHIFT. SAFETY MONITOR BY SIDE. PULLED OUT CURRENT IV IN RFA, NEW IV PLACED IN LAC, PULLED THAT OUT SHORTLY AFTER. NEW IV PLACED IN RAC. PT THEN PULLED THAT OUT WELL. MD COX TO THE FLOOR. PRESCRIBED XANAX 0.5 MG, ADMINISTERED ORDERED. MD CHAPARRO MADE THE DECISION TO ADMIT PT TO ICU IN ORDER TO RECEIVE ATIVAN DRIP. PT SCORED AN 8 ON CIWA AT 0100 AND 0200. PT SCORED A 12 AT 0300. NO IV ACCESS TO MEDICATE. AWARE. PT TRANSFERED TO ICU AT 0400.REPORT TO ASHLEY SHAH. VITALS-= T-98, P-108, R-24, B/P-170/90, 98.
--- NOTE | 2016-06-04 04:45 | NUR ---
Patient arrived to 112 from 2NB with PABLO Messina, 1:1 sitter and 2 security guards. He is transferred to the bed without incident and placed onto the ICU monitors. Patient is emotional and weepy, disoriented and agitated. An IV is established in the ARON and Ativan gtt is initiated at 2mg/hr per order. With security remaining at the bedside the patient is placed into 4-point hard restraints to prevent harm to himself and staff. Patient remains agitated and is violently fighting the restraints and thrashing in the bed. He is seen to be tachycardic with HR into 150's with incresing agitation and BP is elevated into 160's-170's/100's. Many attempts are made to calm the patient and explain treatment plan and reason for ICU transfer, but patient is unable to comprehend and remains agitated. The patient is on RA, and sats are over 97%. Skin is intact, but there are scars on arms from when patient used to cut self. Patient's pupils are dialated, 6MM, equal and sluggish, and he denies drug use. Safety is maintained at this time, with restraints, Ativan gtt and 1:1 sitter at bedside. Will cont to monitor.
--- NOTE | 2016-06-04 05:30 | NUR ---
Patient instructs this RN and 1:1 sitter to go to his house, get spare downs from under the door mat, go into his room, open his safe, (to which is gave combination) and retrieve his gun so he can shoot himself. Patient is informed at this time that we are here to maintain his safety, and that the staff will not accomadate him in his plans to harm himself or others. Patient laughs this comment off as a joke, but given patient state of mental health and impulsiveness, 4 point hard restraints, atilio vest, and 1:[address] Safety is maintained, will cont to monitor.
[2016-06-04 07:55] LABS: ABSOLUTE BASOPHIL COUNT 0 /CUMM (0.0-0.2); ABSOLUTE EOSINOPHIL COUNT 0 /CUMM (0.0-0.7); ABSOLUTE GRANULOCYTE CT 4.1 /CUMM (1.4-6.5); ABSOLUTE LYMPH COUNT 0.9 /CUMM (1.2-3.4); ABSOLUTE MONOCYTE COUNT 0.7 /CUMM (0.10-0.60); BASOPHIL % 0.4 % (0.0-2.0); EOSINOPHIL % 0.1 % (0-5); GRANULOCYTE % 72.6 % (42.2-75.2); HEMATOCRIT 45.6 % (42-52); MEAN CORPUSCULAR HGB 33.3 PG (27.0-31.0); MEAN CORPUSCULAR HGB CONC 35.1 G/DL (33.0-37.0); MEAN CORPUSCULAR VOLUME 94.8 FL (80.0-94.0); MEAN PLATELET VOLUME 7.9 FL (7.4-10.4); PLATELET COUNT 127 /CUMM (130-400); RBC DISTRIBUTION WIDTH 14.1 % (11.5-14.5); RED BLOOD CELL CT 4.81 /CUMM (4.70-6.10); WHITE BLOOD CELL COUNT 5.7 /CUMM (4.8-10.8)
--- NOTE | 2016-06-04 08:06 | NUR ---
Patient received a one time dose of 1mg Haldol IM for agitation, and Ativan gtt increased per protocol for increasing agitation. Patient is also placed in to a atilio vest. Patient is actively attempting to escape from bed and is pulling off heart monitor and pulling at 4 pt restraints. Many attempts have been made to calm patient. Patient's mother called, is updated on plan of care and fully supports all actions at this time. Patient remains irrational, impulsive, is hallucinating and is unable to comprehend and follow instructions. SAS remains between a 6-7 as patient becomes violently agitated at times. Safety maintained, will cont to monitor.
--- NOTE | 2016-06-04 08:29 | Cons- CRCU ---
ABRAHAN SILVA,JAMAL 06/04/16 0829: General Information and HPI History of Present Illness: This is a 25-year-old male with past medical history significant for anxiety, depression, suicidal ideation, multiple admissions for drug and alcohol rehabilitation and comes with chief complaint of seizure. Patient was in car with his mother who witnessed the event. She states she noticed him becoming rigid in his upper extremities and start shaking. She also states that his eyes rolled back and that he seemed to be choking; additionally, at that time he was unresponsive and seemed confused afterwards. Entire event lasted around 1 minute. Upon further questioning of the patient he states that prior to the episode he remembers feeling lightheaded and hot, he felt like he was breaking into a sweat, he denies any bowel or bladder loss. His last alcoholic drink was yesterday. Pt states that he drinks 4-5 shots of whiskey a day. He has been to rehabilitation 3 times to address his substance abuse. He also states that he takes Xanax, which is prescribed by psychiatrist, for severe anxiety 3-4 times a day. He did admit that he probably took more than 3 as he ran out of his medication earlier than expected this month. He also endorses frequent usage of marijuana. Denies use of heroin, pills, or any other substances. He endorses severe anxiety and depression. Denies current suicidal or homicidal ideation but admits he used to cut and had severe depression leading to suicidal ideation. Denies headaches, blurred vision, shortness of breath, abdominal pain , or palpitations outside of episodes of severe anxiety. He endorses nausea, diarrhea (loose stool up to 2 times a day), vomiting, abdominal discomfort, hematochezia, melena, or hematuria. He states over the past several months she' s had a 40 pound unintentional weight loss. He states that he is unable to keep food down due to nausea and vomiting. He does endorse history of lactose intolerance but denies any other food allergy. He states he does have interest in eating but is unable to keep food down. He denies any sick contacts, recent travel other than [place], or any significant change in his routine. He states he was last tested for HIV and hepatitis C several months ago and they were both negative Allergies/Medications Allergies: Coded Allergies: No Known Allergies (06/02/16) Home Med List: Alprazolam (Xanax) 1 MG TABLET 1 TAB PO TID ANXIETY (Reported) Fluoxetine HCl 20 MG TABLET 1 TAB PO Q8 ANXIETY (Reported) Zolpidem Tartrate (Ambien) 5 MG TABLET 1 TAB PO QPMP SLEEP AID (Reported) Current Medications: Current Medications Sig/Yissel Start time Last Medication Dose Route Stop Time Status Admin Alprazolam 0.5 MG .STK-MED ONE 06/04 1145 DC PO 06/04 1146 Alprazolam 0.5 MG TID 06/04 0157 DC 06/04 PO 06/11 0156 0203 Fluoxetine HCl 60 MG DAILY 06/03 1000 AC 06/04 PO 0958 Folic Acid 1 MG DAILY 06/04 1259 AC PO Haloperidol 5 MG ONCE ONE 06/04 1300 DC 06/04 IM 06/04 1301 1309 Haloperidol 2.5 MG ONCE ONE 06/04 1200 CAN PO 06/04 1201 Haloperidol 2.5 MG ONCE ONE 06/04 1200 DC 06/04 IM 06/04 1201 1208 Haloperidol 1 MG ONCE ONE 06/04 0545 DC 06/04 IM 06/04 0546 0550 Heparin Sodium 5,000 UNIT Q8 06/02 2200 AC 06/04 (Porcine) SC 2207 Lorazepam 100 MG Q6H 06/04 1030 AC 06/04 Sodium Chloride 1,000 ML IV 2202 Lorazepam 100 MG Q24H 06/04 0945 CAN Sodium Chloride 1,000 ML IV Lorazepam 50 MG Q24H 06/04 0230 DC 06/04 Sodium Chloride 500 ML IV 0418 Lorazepam 2 MG Q6 06/02 1833 DC 06/04 PO 0036 Lorazepam See Dose Q1P PRN 06/02 1830 DC 06/04 Insts (1) IV 0005 Magnesium Sulfate 1 GM ONCE ONE 06/04 1200 DC 06/04 Dextrose/Water 100 ML IV 06/04 1559 1230 Melatonin 5 MG AT BEDTIME 06/03 0030 AC 06/04 PO 2207 Multivitamins 1 TAB DAILY 06/04 1259 AC PO Nicotine 7 MG DAILY 06/04 1000 CAN TOP Nicotine 21 MG DAILY 06/04 1000 AC 06/04 TOP 0958 Non-Formulary 0 SEE ADMIN CRITERIA 06/04 1345 DC Medication ANY Ondansetron HCl 4 MG BID 06/03 2200 AC 06/04 PO 0958 Potassium Chloride 40 MEQ ONCE ONE 06/04 1929 DC 06/04 PO 06/04 Potassium Chloride 10 MEQ ONCE ONE 06/04 0815 DC 06/04 IV 06/04 0816 0915 Sodium Chloride 1,000 ML Q10H 06/04 1929 AC 06/04 IV 2012 Thiamine HCl 100 MG DAILY 06/04 1259 AC 06/04 Sodium Chloride 100 ML IV 06/06 1012 1538 Zolpidem Tartrate 5 MG AT BEDTIME NEED.. 06/02 220 AC 06/03 PO 2232 Dose Instructions: (1)Lorazepam: See admin criteria Review of Systems Review of Systems Constitutional: Reports: see HPI. 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 Psychosocial History Where Do You Live? Home Primary Language: Lao Smoking Status: Current Everyday Smoker ETOH Use: alcoholic Functional Ability ADLs Independent: dressing, eating, toileting, bathing. Ambulation: independent IADLs Independent: shopping, housework, finances, food prep, telephone, transportation , medication admin. Exam & Diagnostic Data Last 24 Hrs of Vital Signs/I&O Vital Signs Date Time Temp Pulse Resp B/P Pulse O2 O2 Flow FiO2 Ox Delivery Rate 06/04 1999 97.7 103 20 131/68 06/04 1900 97.6 90 21 141/100 06/04 1800 97.6 70 20 124/84 06/04 1700 97.6 72 18 132/74 06/04 1600 97.6 74 16 126/64 06/04 1600 97.6 74 16 126/64 93 Room Air Room Air 06/04 1600 94 Room Air Room Air 06/04 1500 97.7 80 17 127/71 06/04 1400 97.7 96 21 119/68 06/04 1330 97.7 190 46 164/98 06/04 1300 97.7 174 44 159/82 06/04 1200 97.7 150 26 160/100 06/04 1200 96 Room Air Room Air 06/04 1100 98.0 147 26 168/103 06/04 1000 97.8 122 22 161/88 06/04 0947 97.8 122 20 161/84 06/04 0938 97.8 122 20 161/84 06/04 0900 97.8 122 20 161/84 / 0800 97.8 114 30 162/94 06/04 0800 97.8 114 30 162/94 100 Room Air Room Air 06/04 0800 100 Room Air Room Air 06/04 0745 97.8 122 22 160/88 06/04 0600 98.7 140 28 164/110 06/04 0400 98.1 124 22 165/85 06/04 0347 98.0 108 24 170/90 98 Room Air 06/03 2327 98.3 100 20 142/92 97 Room Air Intake & Output 06/04 1600 06/04 0800 06/04 0000 Intake Total 1950 140 600 Output Total 400 Balance 1550 140 600 Intake, IV 1400 140 Intake, Oral 550 600 Output, Urine 400 Physical Exam General Appearance: awake, intoxicated Head: atraumatic, normal appearance Eyes: Bilateral: normal appearance, EOMI (Mydiasis), other. Ears, Nose, Throat: normal pharynx, normal ENT inspection Neck: normal inspection, supple Respiratory: normal breath sounds, chest non-tender, no respiratory distress Cardiovascular: regular rate/rhythm, tachycardia Peripheral Pulses: 2+ radial (R), 2+ radial (L) Gastrointestinal: normal bowel sounds, soft, non-tender Extremities: normal inspection, normal capillary refill, normal range of motion Other Physical Findings: Pupillary dilatation with horizontal nystagmus Last 48 Hrs of Labs/Cameron: Laboratory Tests 06/04/16 1655: Urine Opiates Screen < 100.00, Methadone Screen < 40, Barbiturate Screen < 60, Ur Phencyclidine Scrn < 6.00, Amphetamines Screen < 100, U Benzodiazepines Scrn 398 H, Urine Cocaine Screen < 50, Urine Cannabis Screen > 80.00 H 06/04/16 1600: Anion Gap 18 H, Estimated GFR > 60, Glucose 103 H, Lactic Acid 0.9, Calcium 10.1, Phosphorus 6.8 H, Magnesium 2.6 H, Total Bilirubin 0.9, AST 420 H, ALT 199 H, Creatine Kinase > 91536 H, Albumin 5.2 H 06/04/16 1440: pH 7.40, pCO2 38, pO2 98, HCO3 23, ABG O2 Sat (Measured) 97.0, P-50 (Temp Corrected) NO, Carboxyhemoglobin 0.3 L, O2 Concentration % RA, Temperature 98.0 , O2 Delivery Method RA, Phlebotomy Draw Site RIGHT RADIAL 06/04/16 0640: Anion Gap 16, Estimated GFR > 60, BUN/Creatinine Ratio 13.8, Magnesium 1.9, Total Bilirubin 0.8, Direct Bilirubin 0.4, AST 256 H, ALT 167 H, Alkaline Phosphatase 95, Total Protein 7.7, Albumin 4.8, CBC w Diff NO MAN DIFF REQ, RBC 4.81, MCV 94.8 H, MCH 33.3 H, RDW 14.1, MPV 7.9, Gran % 72.6, Lymphocytes % 15.2 L, Monocytes % 11.7 H, Eosinophils % 0.1, Basophils % 0.4, Absolute Granulocytes 4.1, Absolute Lymphocytes 0.9 L, Absolute Monocytes 0.7 H, Absolute Eosinophils 0, Absolute Basophils 0, PUBS MCHC 35.1 06/03/16 0701: Anion Gap 13, Estimated GFR > 60, BUN/Creatinine Ratio 10.0, Phosphorus 3.2, Magnesium 1.9, Total Bilirubin 1.3, Direct Bilirubin 0.4, AST 199 H, ALT 165 H , Alkaline Phosphatase 93, Total Protein 7.1, Albumin 4.5, Hepatitis A IgM Ab NONREACTIVE, Hep Bs Antigen NONREACTIVE, Hep B Core IgM Ab Conf NONREACTIVE, Hepatitis C Antibody NONREACTIVE, HIV 1&2 Ab Western Blot NONREACTIVE Diagnostic Data Other Results Abdominal ultrasound Liver of diffuse increased echogenicity without focal lesions. The appearance is nonspecific, but consistent with fatty infiltration. Neither cholelithiasis nor cholecystitis. Assessment/Plan Impression/Plan: Patient is a very young 25 YO M with PMH significant for depression, anxiety, substance abuse, multiple admissions at rehabilitation for prescription narcotics, cannabis, alcohol, and heroin, who presents with CC seizure. Incidentally, during workup he mentioned 40 pound weight loss of unknown etiology, and he endorses chronic nausea vomiting and diarrhea. He is initially admitted to [facility] for possible alcohol/benzo withdrawl. Yesterday night patient is transfered to ICU as he needs ativan drip for increased agitation. In the morning he was initially on Ativan drip @4mcg/hr. He was then titrated to 26mcg/hr slowly. He became overly sedated at some point that he became unresponsive, but his ABG was normal. He woke up in the evening, when he was oriented to place and person but not to time. Recommendations: PLAN Alcohol /benzo withdrawl vs Intoxication with sympathomimetic agent * Agitation, euphoria with Dilated pupils * Questionable intoxication yesterday after his girl friend visited him. * Lorazepam drip which was titrated upto 26mcg/hr, on hold after he became overly sedated. * On Banana bag. * Received haldol of around 7.5mg IM in total. * Evening he woke up - completely alert, responding well. * Restarted him on ativan drip @2mcg/hr. * will slowly titrate the drip as needed * Psych consulted - on board * On 4point and behavioural restraints. Elevated CK with transaminitis * CK level in the evening was 62409 with AST/ALT around 500's * possibly dehydration and constant agitation/trying to get out of bed * Started on NS @100ml/hr as he was very dehydrated * His Cr now is 0.8 Persistant tachycardia and high blood pressure * His HR is 150-180 in the morning with a very high BP * Cardio consulted * After maximizing the benzo dose if heart rate is still in 140's - recommended to start metoprolol 2.5Q4hr and can increase to 5mg Q4 as per the HR DVT prophylaxis * ALPS Code Status * Full Code Problem List: 1. Alcohol withdrawal seizure 2. Transaminitis 3. Elevated CK Consult Acknowledgment - Thank you for your consult request. Arti ELAM MD 06/04/16 0845: General Information and HPI Consulting Request Date of Consult: 06/04/16 Requested By: Dr. Ragland Reason for Consult: CRCU management Source of Information: patient, old records Exam Limitations: confusion Assessment/Plan Other Findings/Comments: The patient is a 25-year-old male with history of alcohol abuse. Mother also reports history of abuse of OxyContin 42 patient was admitted to a drug rehabilitation program in [place] about 2 years ago. He is also on Xanax for anxiety disorder which he abuses. The patient is confused and on 10 mg of ativan per hour. The patient remains agitated and on 4 point restraints. He is not able to offer complaints. We will continue the patient on CIWA precautions, and ativan drip. We will consult psychiatry and social media project manager. We will continue with CRCU management. Consult Acknowledgment - Thank you for your consult request.
--- NOTE | 2016-06-04 14:00 | Cons- Psychiatry ---
See Addendum Psychiatric Consult Date of Consult: 06/04/16 Reason for Consult: Agitation History of Present Illness: HPI: 25-year-old single male presents to [facility] emergency department on June 02 post experiencing seizure-like activity in the car with his mother. Per chart, at the time he endorsed drinking vodka daily and consuming 4 mg of Xanax daily. At that time he also denied any other illicit drug use and disclosed a history of opiate abuse at age 18 denied any recent use. His last drink was on June 01 and last Xanax use was approximately May 27. He endorsed history of cutting and was observed to have multiple lacerations in different stages of healing to the left arm. Additionally he endorsed unintentional 40 pound weight loss over the last few months. Per chart 3 history of inpatient rehabilitation stays for alcohol and narcotic use most recently in [place] about a year and a half ago. Review of [facility] [employer] reveals patient has been receiving prescription for Xanax by Dr. Saritha Alcala of [place] which recently increased from 0.5 mg 2 times a day in January to 0.5 mg 3 times a day, to 1 mg 3 times a day and March. It was last filled on May 13 #90. No other controlled substances on [facility] [employer]. Per nursing note the early hours of this morning the patient requested nurse in sitter go to his house to get a gun so he could shoot himself in the head and started laughing inappropriately. The patient became increasingly confused and agitated overnight last night and was transferred to critical care unit in 4-point hard locking restraints or he has been given Ativan to poor effect. PMH: Please see the H&P for a complete listing Past Psych History: Unspecified anxiety disorder Unspecified depressive disorder Opiate use disorder Alcohol use disorder Sedative hypnotic use disorder -Outpatient Dr. Saritha Alcala of [place] at present -Inaptient Unclear, patient states he's been "locked in the psychiatric antonio" before but is unable to disclose further. Family Psych History: Unknown Substance History EtOH daily unknown amount Endorses benzos daily Utox is negative and patient currently receives Xanax prescribed by a psychiatrist History of heroin use Treatment 3 previous rehabilitation stays most recently 1-1/2 years ago Family Substance History: Unknown patient states his father gave him Percocet but he is a poor historian at this point Social: Unobtainable Abuse/Trauma: Unobtainable Current Home Psychotropic Medications: Prozac 40 mg daily Xanax 1 mg 3 times a day Current Hospital Psychotropic Medications: Med Fluoxetine HCl 60 MG PO DAILY 06/03/16 1000 Lorazepam 100 MG IV Q6H 06/04/16 1030 Sodium Chloride 1,000 ML Melatonin 5 MG PO AT BEDTIME 06/03/16 0030 Zolpidem Tartrate 5 MG PO AT BEDTIME NEEDED PRN 06/02/16 2200 Allergies: Coded Allergies: No Known Allergies (06/02/16) Current Medications: Med Fluoxetine HCl 60 MG PO DAILY 06/03/16 1000 Folic Acid 1 MG PO DAILY 06/04/16 1259 Heparin Sodium (Porcine) 5,000 UNIT SC Q8 06/02/16 2200 Lorazepam 100 MG IV Q6H 06/04/16 1030 Sodium Chloride 1,000 ML Magnesium Sulfate 1 GM IV ONCE ONE 06/04/16 1200 Dextrose/Water 100 ML Melatonin 5 MG PO AT BEDTIME 06/03/16 0030 Multivitamins 1 TAB PO DAILY 06/04/16 1259 Nicotine 21 MG TOP DAILY 06/04/16 1000 Non-Formulary Medication ANY SEE ADMIN CRITERIA 06/04/16 1345 Ondansetron HCl 4 MG PO BID 06/03/16 2200 Thiamine HCl 100 MG IV DAILY 06/04/16 1259 Sodium Chloride 100 ML Zolpidem Tartrate 5 MG PO AT BEDTIME NEEDED PRN 06/02/16 2200 Past History Past Medical History Neurological: dizziness, migraine, seizure EENT: NONE Cardiovascular: NONE Respiratory: NONE Gastrointestinal: lactose intolerance Hepatic: NONE Renal: NONE Musculoskeletal: NONE Psychiatric: alcohol dependence, anxiety, depression, IV drug abuse, opioid dependence, substance abuse Endocrine: NONE Blood Disorders: NONE Cancer(s): NONE 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 Past Surgical History Surgical History: 1 Psychosocial History Strengths/Capabilities: Family support Physical Limitations (Interventions): Currently delirious Psychiatric Treatment History Psych Treatment Psychiatric Treatment Yes Diagnosis: Unspecified anxiety disorder Unspecified depressive disorder Opiate use disorder Alcohol use disorder Sedative hypnotic use disorder Risk Factors: age (under 24/over 65), high anxiety/distress, SA/MH hospitalized, substance abuse, male Substance Use/Abuse History Drug Use/Abuse Substances Used/Abused Yes (See above) Substance Abuse Treatment Substance Abuse Treatment Past Substance Abuse [place] Yes (See above) Assessment/Plan Mental Status Orientation: Confused Affect: Labile Speech: Incoherent Neuro-vegetative: Energy Increased, Hyperactivity Mental Status Exam: 25-year-old single male evaluated in bed in the critical care unit. He is in 4-point locking restraints and Narvon vest. He is not able to participate in evaluation in meaningful way due to agitation and confusion. He appears to think this mortgage or loan underwriter is his cousin who he grew up with. states "do you want to go to the house and jam?" He is actively hallucinating throughout interview looking around the room and staring above his bed saying "who is that over there." Pronounced psychomotor agitation as patient struggles against restraints. Speech is incoherent. Thought process is tangential with loose associations. Marked confusion. Impairment of memory and attention. No insight or judgment at this time. When asked what substances he has been taking recently patient declined any hallucinogen use rather stating he's been taking IV Valium and IV Ativan. He did pause briefly before denying MDMA use. He does have track edward to both wrists but is unclear if this is from substance use or from him frequently self discontinuing his IV lines. Detox on admission only positive for marijuana, ETOH level <10. Dilated pupils, no nystagmus noted. Per house staff report there is some concern that his girlfriend visited him last night and may have given him some substance. He became increasingly agitated post her visit, however may have been just due to delayed onset of alcohol and benzo withdrawal. CIWAs q1h between 36 and 20 since 0600 this AM. Most recent 32 at 1100. Currently on 1.8 mg of Ativan IV per hour. Lab Results: Laboratory Tests EKG on 06/04/2016 shows sinus tach, QTc 428. 06/04/16 0640: Anion Gap 16, Estimated GFR > 60, BUN/Creatinine Ratio 13.8, Magnesium 1.9, Total Bilirubin 0.8, Direct Bilirubin 0.4, AST 256 H, ALT 167 H, Alkaline Phosphatase 95, Total Protein 7.7, Albumin 4.8, CBC w Diff NO MAN DIFF REQ, RBC 4.81, MCV 94.8 H, MCH 33.3 H, RDW 14.1, MPV 7.9, Gran % 72.6, Lymphocytes % 15.2 L, Monocytes % 11.7 H, Eosinophils % 0.1, Basophils % 0.4, Absolute Granulocytes 4.1, Absolute Lymphocytes 0.9 L, Absolute Monocytes 0.7 H, Absolute Eosinophils 0, Absolute Basophils 0, PUBS MCHC 35.1 06/03/16 0701: Anion Gap 13, Estimated GFR > 60, BUN/Creatinine Ratio 10.0, Phosphorus 3.2, Magnesium 1.9, Total Bilirubin 1.3, Direct Bilirubin 0.4, AST 199 H, ALT 165 H , Alkaline Phosphatase 93, Total Protein 7.1, Albumin 4.5, Hepatitis A IgM Ab NONREACTIVE, Hep Bs Antigen NONREACTIVE, Hep B Core IgM Ab Conf NONREACTIVE, Hepatitis C Antibody NONREACTIVE, HIV 1&2 Ab Western Blot NONREACTIVE 06/02/16 2200: Lactic Acid 1.3 06/02/16 1545: Urine Opiates Screen < 100.00, Methadone Screen < 40, Barbiturate Screen < 60, Ur Phencyclidine Scrn < 6.00, Amphetamines Screen < 100, U Benzodiazepines Scrn < 85, Urine Cocaine Screen < 50, Urine Cannabis Screen > 80.00 H 06/02/16 1542: Urine Color YEL, Urine Clarity CLEAR, Urine pH 6.0, Ur Specific [place] >= 1.030 , Urine Protein 100 H, Urine Ketones 15 H, Urine Nitrite NEG, Urine Bilirubin NEG, Urine Urobilinogen 0.2, Ur Leukocyte Esterase NEG, Ur Microscopic SEDIMENT EXAMINED, Urine RBC RARE, Ur Epithelial Cells RARE, Urine Mucus RARE, Urine Hemoglobin MOD H, Urine Glucose 100 H 06/02/16 1447: Anion Gap 24 H, Estimated GFR > 60, BUN/Creatinine Ratio 11.3, Glucose 177 H, Calcium 9.0, Magnesium 2.2, Total Bilirubin 1.0, AST 279 H, ALT 206 H, Alkaline Phosphatase 117, Total Protein 7.9, Albumin 5.0, Globulin 2.9, Albumin/ Globulin Ratio 1.7, Amylase 81, Lipase 82, CBC w Diff MAN DIFF ORDERED, RBC 5.21 , MCV 95.6 H, MCH 33.0 H, RDW 14.6 H, MPV 7.4, Gran % 84.6 H, Lymphocytes % 9.3 L, Monocytes % 6.0, Eosinophils % 0.1, Basophils % 0 L, Absolute Granulocytes 8.2 H, Absolute Lymphocytes 0.9 L, Absolute Monocytes 0.6, Absolute Eosinophils 0, Absolute Basophils 0, Platelet Estimate VERIFIED BY SMEAR, Normocytic RBCs VERIFIED, Normochromic RBCs VERIFIED, PUBS MCHC 34.5, Serum Alcohol < 10.0 Microbiology 06/04 0445 UPPER RESP: Surveillance Culture - RECD Diffential Diagnosis: Delirium due to alcohol and benzodiazepine withdrawal Rule out stimulant or hallucinogen intoxication Unspecified anxiety disorder Unspecified depressive disorder Opiate use disorder Alcohol use disorder Sedative hypnotic use disorder Marijuana use disorder Impression: 25-year-old single male presents with symptoms consistent with delirium on the context of alcohol and benzo withdrawal s/p Sz. While this patient is young to be experiencing DTs we do know his prescribed benzo use was increasing prior to admission is unclear how much alcohol he was consuming. Per chart he has a history of anxiety and depression but is unclear if this exists outside the context of substance use. It is also unclear if the patient is currently intoxicated due to an outside substance brought in by his significant other. Provisional Treatment Plan: 1. Please repeat Utox 2. Please continue to monitor electrolytes and CK. Patient may be at risk for developing rhabdo due to thrashing against restraints. 3. Please continue CIWA protocol and medicate appropriately. Agitation will likely not subside until patient receives adequate amount of Ativan and then taper can begin. 4. Please continue vitamin supplementation included thiamine and folic acid. 5. Please utilize Haldol for hallucinosis. Recommend 5 mg by mouth every 8 hours when necessary for hallucinations or dangerous agitation. Monitor QTc and electrolytes. 6. Please discontinue Ambien until patient becomes less confused. Would recommend increased melatonin 10 mg or Rozerem 8 mg at bedtime as substitute. 7. Please hold Prozac for now. 8. Please continue to avoid benzodiazepines, opioid analgesics, and meds with strong anticholinergic properties as much as possible to prevent further confusion. 9. Please initiate the following nonpharmacologic interventions: -Avoid nursing and medical procedures during sleep hours whenever possible - Cluster at night interventions that must be completed as much as possible to minimize sleep disruption - Decrease noise in patient area during sleeping hours - Reduce lighting at night 10. Patient cannot leave AMA without psychiatric clearance at this time. Insight and judgment are impaired. Patient made suicidal statement to the nursing staff overnight. It is unclear what level of care will be appropriate for him once medically cleared, we will continue to evaluate and advise. 11. Continue sitter. 12. Obtain psychosocial collateral from family. Thank you for including psychiatry in this case we'll continue to follow. Dick Frank APRN, pager [phone].
--- NOTE | 2016-06-04 14:04 | Cons- Cardiology ---
General Information and HPI Consulting Request Date of Consult: 06/04/16 Requested By: ANGELIQUE DEL TORO MD Reason for Consult: Sinus tachycardia History of Present Illness: The patient is a 25-year-old male with history of anxiety, depression, and multiple admissions for drug and alcohol rehabilitation. He presented to the hospital with seizure. The patient was in the car with his mother who witnessed the seizure. She noted that he became rigid in his upper extremities started shaking. His eyes rolled back and he appeared to be choking. He was unresponsive at that time, and he was confused afterwards. The seizure event lasted proximally 1 minute. The patient was admitted for further management. He is currently having symptoms of withdrawal from alcohol. The patient is currently agitated, and requiring a 4 point restraint. He responds to questions. He denies chest pain or shortness of breath. He also denies palpitations. He denies any prior cardiac history. He is receiving Ativan for alcohol withdrawal. Allergies/Medications Allergies: Coded Allergies: No Known Allergies (06/02/16) Home Med List: Alprazolam (Xanax) 1 MG TABLET 1 TAB PO TID ANXIETY (Reported) Fluoxetine HCl 20 MG TABLET 1 TAB PO Q8 ANXIETY (Reported) Zolpidem Tartrate (Ambien) 5 MG TABLET 1 TAB PO QPMP SLEEP AID (Reported) Current Medications: Current Medications Sig/Yissel Start time Last Medication Dose Route Stop Time Status Admin Alprazolam 0.5 MG .STK-MED ONE 06/04 1145 DC PO 06/04 1146 Alprazolam 0.5 MG TID 06/04 0157 DC 06/04 PO 06/11 0156 0203 Cyanocobalamin/ 1 BAG ONCE ONE 06/03 1045 DC 06/03 Thiamine/Pyridoxine IV 06/03 1844 1146 Sodium Chloride 1,000 ML Fluoxetine HCl 60 MG DAILY 06/03 1000 AC 06/04 PO 0958 Folic Acid 1 MG DAILY 06/04 1259 AC PO Haloperidol 5 MG ONCE ONE 06/04 1300 DC 06/04 IM 06/04 1301 1309 Haloperidol 2.5 MG ONCE ONE 06/04 1200 CAN PO 06/04 1201 Haloperidol 2.5 MG ONCE ONE 06/04 1200 DC 06/04 IM 06/04 1201 1208 Haloperidol 1 MG ONCE ONE 06/04 0545 DC 06/04 IM 06/04 0546 0550 Heparin Sodium 5,000 UNIT Q8 06/02 2200 AC 06/04 (Porcine) SC 1320 Lorazepam 100 MG Q6H 06/04 1030 AC 06/04 Sodium Chloride 1,000 ML IV 1030 Lorazepam 100 MG Q24H 06/04 0945 CAN Sodium Chloride 1,000 ML IV Lorazepam 50 MG Q24H 06/04 0230 DC 06/04 Sodium Chloride 500 ML IV 0418 Lorazepam 2 MG Q6 06/02 1833 DC 06/04 PO 0036 Lorazepam See Dose Q1P PRN 06/02 1830 DC 06/04 Insts (1) IV 0005 Magnesium Sulfate 1 GM ONCE ONE 06/04 1200 AC 06/04 Dextrose/Water 100 ML IV 06/04 1559 1230 Melatonin 5 MG AT BEDTIME 06/03 0030 AC 06/03 PO 2232 Multivitamins 1 TAB DAILY 06/04 1259 AC PO Nicotine 7 MG DAILY 06/04 1000 CAN TOP Nicotine 21 MG DAILY 06/04 1000 AC 06/04 TOP 0958 Non-Formulary 0 SEE ADMIN CRITERIA 06/04 1345 UNVr Medication ANY Ondansetron HCl 4 MG BID 06/03 2200 AC 06/04 PO 0958 Potassium Chloride 10 MEQ ONCE ONE 06/04 0815 DC 06/04 IV 06/04 0816 0915 Thiamine HCl 100 MG DAILY 06/04 1259 AC Sodium Chloride 100 ML IV 06/06 1012 Zolpidem Tartrate 5 MG AT BEDTIME NEED.. 06/02 2200 AC 06/03 PO 2232 Dose Instructions: (1)Lorazepam: See admin criteria Review of Systems Review of Systems: No rash. No melena. No hemoptysis. All other systems were reviewed, and were noted to be negative. 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 The patient denies any family history of premature cardiac disease. Psychosocial History Where Do You Live? Home Primary Language: Maldivian Smoking Status: Current Everyday Smoker ETOH Use: alcoholic Functional Ability ADLs Independent: dressing, eating, toileting, bathing. Ambulation: independent IADLs Independent: shopping, housework, finances, food prep, telephone, transportation , medication admin. Exam & Diagnostic Data Vital Signs and I&O Vital Signs Date Time Temp Pulse Resp B/P Pulse O2 O2 Flow FiO2 Ox Delivery Rate 06/04 1100 98.0 147 26 168/103 06/04 1000 97.8 122 22 161/88 06/04 0947 97.8 122 20 161/84 06/04 0938 97.8 122 20 161/84 06/04 0900 97.8 122 20 161/84 06/04 0800 97.8 114 30 162/94 06/04 0800 97.8 114 30 162/94 100 Room Air Room Air 06/04 0800 100 Room Air Room Air 06/04 0745 97.8 122 22 160/88 06/04 0600 98.7 140 28 164/110 06/04 0400 98.1 124 22 165/85 06/04 0347 98.0 108 24 170/90 98 Room Air 06/03 2327 98.3 100 20 142/92 97 Room Air 06/03 1645 98.2 101 19 144/94 98 Room Air Intake & Output 06/04 1600 06/04 0800 06/04 0000 06/03 1600 06/03 0800 06/03 0000 Intake Total 227 394 9695 1400 1300 Output Total Balance 551 202 0847 1400 1300 Intake, IV 140 1000 1000 1000 Intake, Oral 600 450 400 300 Patient 138 lb Weight Physical Exam: Gen: The patient is agitated, requiring 4 point restraint HEENT: Normal nose, ears, and oropharynx. Pupils equal bilaterally. Conjunctiva normal. Neck: Supple with no JVD, no masses, and no thyromegaly Lungs: Clear to auscultation with normal respiratory effort Heart: RRR, S1, S2, no murmurs. No peripheral edema, 2+ pulses in the lower extremities bilaterally Abdomen: Soft, nontender, no masses. No hepatomegaly. No splenomegaly Extremities: No clubbing or cyanosis. Normal muscle strength in the upper and lower extremities Skin: Normal skin turgor with no skin ulcers or lesions noted. Neuro: Cranial nerves intact. Sensation intact Psych: The patient is agitated and appears to be mildly confused. Labs/Cameron Results: Laboratory Tests 06/04 06/03 06/02 0640 0701 2200 Chemistry Sodium (137 - 145 mmol/L) 139 136 L Potassium (3.5 - 5.1 mmol/L) 3.7 3.6 Chloride (98 - 107 mmol/L) 95 L 94 L Carbon Dioxide (22 - 30 mmol/L) 28 29 Anion Gap (5 - 16) 16 13 BUN (9 - 20 mg/dL) 11 7 L Creatinine (0.7 - 1.2 mg/dL) 0.8 0.7 Estimated GFR (>60 ml/min) > 60 > 60 BUN/Creatinine Ratio (7 - 25 %) 13.8 10.0 Lactic Acid (0.7 - 2.1 mmol/L) 1.3 Phosphorus (2.5 - 4.5 mg/dL) 3.2 Magnesium (1.6 - 2.3 mg/dL) 1.9 1.9 Total Bilirubin (0.2 - 1.3 mg/dL) 0.8 1.3 Direct Bilirubin (< 0.4 mg/dL) 0.4 0.4 AST (17 - 59 U/L) 256 H 199 H ALT (21 - 72 U/L) 167 H 165 H Alkaline Phosphatase (< 127 U/L) 95 93 Total Protein (6.3 - 8.2 g/dL) 7.7 7.1 Albumin (3.5 - 5.0 g/dL) 4.8 4.5 Hematology CBC w Diff NO MAN DIFF REQ WBC (4.8 - 10.8 /CUMM) 5.7 RBC (4.70 - 6.10 /CUMM) 4.81 Hgb (14.0 - 18.0 G/DL) 16.0 Hct (42 - 52 %) 45.6 MCV (80.0 - 94.0 FL) 94.8 H MCH (27.0 - 31.0 PG) 33.3 H RDW (11.5 - 14.5 %) 14.1 Plt Count (130 - 400 /CUMM) 127 L MPV (7.4 - 10.4 FL) 7.9 Gran % (42.2 - 75.2 %) 72.6 Lymphocytes % (20.5 - 51.1 %) 15.2 L Monocytes % (1.7 - 9.3 %) 11.7 H Eosinophils % (0 - 5 %) 0.1 Basophils % (0.0 - 2.0 %) 0.4 Absolute Granulocytes (1.4 - 6.5 /CUMM) 4.1 Absolute Lymphocytes (1.2 - 3.4 /CUMM) 0.9 L Absolute Monocytes (0.10 - 0.60 /CUMM) 0.7 H Absolute Eosinophils (0.0 - 0.7 /CUMM) 0 Absolute Basophils (0.0 - 0.2 /CUMM) 0 PUBS MCHC (33.0 - 37.0 G/DL) 35.1 Serology Hepatitis A IgM Ab (NONREACTIVE) NONREACTIVE Hep Bs Antigen (NONREACTIVE) NONREACTIVE Hep B Core IgM Ab Conf (NONREACTIVE) NONREACTIVE Hepatitis C Antibody (NONREACTIVE) NONREACTIVE HIV 1&2 Ab Western Blot (NONREACTIVE) NONREACTIVE 06/02 06/02 1545 1542 Toxicology Urine Opiates Screen (>2000 NG/ML) < 100.00 Methadone Screen (>300 NG/ML) < 40 Barbiturate Screen (>200 NG/ML) < 60 Ur Phencyclidine Scrn (>25 NG/ML) < 6.00 Amphetamines Screen (>1000 NG/ML) < 100 U Benzodiazepines Scrn (>200 NG/ML) < 85 Urine Cocaine Screen (>300 NG/ML) < 50 Urine Cannabis Screen (>50 NG/ML) > 80.00 H Urines Urine Color (YEL,AMB,STR) YEL Urine Clarity (CLEAR) CLEAR Urine pH (5.0 - 8.0) 6.0 Ur Specific [place] (1.001 - 1.035) >= 1.030 Urine Protein (NEG,<30 MG/DL) 100 H Urine Ketones (NEG) 15 H Urine Nitrite (NEG) NEG Urine Bilirubin (NEG) NEG Urine Urobilinogen (0.1 - 1.0 EU/dl) 0.2 Ur Leukocyte Esterase (NEG) NEG Ur Microscopic SEDIMENT EXAMINED Urine RBC (0 - 5 /HPF) RARE Ur Epithelial Cells (NONE,FEW) RARE Urine Mucus (FEW,NONE) RARE Urine Hemoglobin (NEG) MOD H Urine Glucose (N MG/DL) 100 H 06/02 1447 Chemistry Sodium (137 - 145 mmol/L) 136 L Potassium (3.5 - 5.1 mmol/L) 3.7 Chloride (98 - 107 mmol/L) 98 Carbon Dioxide (22 - 30 mmol/L) 15 L Anion Gap (5 - 16) 24 H BUN (9 - 20 mg/dL) 9 Creatinine (0.7 - 1.2 mg/dL) 0.8 Estimated GFR (>60 ml/min) > 60 BUN/Creatinine Ratio (7 - 25 %) 11.3 Glucose (65 - 99 mg/dL) 177 H Calcium (8.4 - 10.2 mg/dL) 9.0 Magnesium (1.6 - 2.3 mg/dL) 2.2 Total Bilirubin (0.2 - 1.3 mg/dL) 1.0 AST (17 - 59 U/L) 279 H ALT (21 - 72 U/L) 206 H Alkaline Phosphatase (< 127 U/L) 117 Total Protein (6.3 - 8.2 g/dL) 7.9 Albumin (3.5 - 5.0 g/dL) 5.0 Globulin (1.9 - 4.2 gm/dL) 2.9 Albumin/Globulin Ratio (1.1 - 2.2 %) 1.7 Amylase (30 - 110 U/L) 81 Lipase (23 - 300 U/L) 82 Hematology CBC w Diff MAN DIFF ORDERED WBC (4.8 - 10.8 /CUMM) 9.6 RBC (4.70 - 6.10 /CUMM) 5.21 Hgb (14.0 - 18.0 G/DL) 17.2 Hct (42 - 52 %) 49.8 MCV (80.0 - 94.0 FL) 95.6 H MCH (27.0 - 31.0 PG) 33.0 H RDW (11.5 - 14.5 %) 14.6 H Plt Count (130 - 400 /CUMM) 162 MPV (7.4 - 10.4 FL) 7.4 Gran % (42.2 - 75.2 %) 84.6 H Lymphocytes % (20.5 - 51.1 %) 9.3 L Monocytes % (1.7 - 9.3 %) 6.0 Eosinophils % (0 - 5 %) 0.1 Basophils % (0.0 - 2.0 %) 0 L Absolute Granulocytes (1.4 - 6.5 /CUMM) 8.2 H Absolute Lymphocytes (1.2 - 3.4 /CUMM) 0.9 L Absolute Monocytes (0.10 - 0.60 /CUMM) 0.6 Absolute Eosinophils (0.0 - 0.7 /CUMM) 0 Absolute Basophils (0.0 - 0.2 /CUMM) 0 Platelet Estimate (ADEQUATE) VERIFIED BY SMEAR Normocytic RBCs VERIFIED Normochromic RBCs VERIFIED PUBS MCHC (33.0 - 37.0 G/DL) 34.5 Toxicology Serum Alcohol (<10 MG/DL) < 10.0 Diagnostic Data EKG Results EKG tracing is independently reviewed, and reveals sinus tachycardia 110 with right atrial abnormality Other Results Abdominal ultrasound: Liver of diffuse increased echogenicity without focal lesions. The appearance is nonspecific, but consistent with fatty infiltration. Neither cholelithiasis nor cholecystitis. Assessment/Plan Assessment/Plan The patient is a 25-year-old male with history of anxiety, depression, and substance abuse. He presented with a seizure, and he is now showing evidence of significant alcohol withdrawal. Sinus tachycardia with heart rates increasing to as high as the 180s. Blood pressure is mildly elevated. The sinus tachycardia is secondary to alcohol withdrawal. The goal should be to decrease his heart rate through treatment of alcohol withdrawal with benzodiazepines. If the heart rate remains severely elevated despite maximal benzodiazepine therapy, I would recommend treatment with IV metoprolol and a when necessary basis for extreme tachycardia. Recommendations: * Continue to monitor heart rate and blood pressure. * Maximize benzodiazepine therapy for alcohol withdrawal. * If heart rate remains severely elevated after maximal benzodiazepine therapy, would give metoprolol 2.5 mg IV every 4 hours PRN for heart rates of greater than 140. If he does not respond to this dose, the metoprolol dose can be increased to 5 mg IV, however the primary goal should be to improve the heart rate through treatment of alcohol withdrawal. Consult Acknowledgment - Thank you for your consult request.
--- NOTE | 2016-06-04 15:10 | NUR ---
Referral received this am via electronic recorder gravity prospecting. This patient is a 25 year old man, admitted to the hospital on 06/01/16 with ETOH Withdrawal. Patient is currently in the Critical Care Unit; restrained in 4 point restraints; on an ativan drip and scoring in all domains on the CIWA scale. Will follow; collaborate with medicine and psychiatry ans assist with aftercare plans when appropriate.
--- NOTE | 2016-06-04 20:29 | NUR ---
SLOWLY INCREASING THE PATIENT'S ATIVAN GTT AT THE DAY WENT ON. PATIENT GETTING INCREASINGLY CONFUSED, RESTLESS, AND AGITATED. PATIENT'S HEARTRATE INCREASED TO THE 190S, NO LONGER REORIENTABLE, PATIENT SCOOCHING HIS BOTTOM TO THE FOOT OF THE BED WHILE IN FOUR POINT BEHAVIORAL RESTRAINTS W/ SITTER AT BEDSIDE. PATIENT IS PROFUSELY SWEATING AND PULLING HARD AGAINST BED FRAME. 1300: ORDER PLACED AND ATIVAN GTT INCREASED TO 20 MG/HR AND 5MG IM HALIDOL GIVEN TO LEFT DELTOID. PATIENT GROWLING AND TRYING TO BITE THIS RN'S HANDS. 1330: DR. ELAM AND DR. GO AT THE BEDSIDE. ORDER GIVEN/PLACED AND ATIVAN GTT TEMPORARILY INCREASED TO 26 MG/HR. 1400: PATIENT SLEEPING/SEDATED AND ATIVAN GTT PLACED ON HOLD. PATIENT AROUSABLE TO STERNAL RUB ONLY. SAS-2 ASSESSED. ALL OF MEDS CAUGHT UP TO PATIENT AT THIS POINT. PATIENT'S VITALS STABLE, 120/64, HR-78, T-97.6, RR-18, 94% ON ROOM AIR. BLOOD GASES DONE AND WNL. OTHER LABWORK COMPLETED AND UTOX SENT. FROM [id number], PATIENT IS SCORING SAS-3, AROUSABLE TO TOUCH/PAIN BUT GOING BACK TO SLEEP. AT 1800, PATIENT AWAKE, OPENING EYES, TALKING, AND PULLING AT RESTRAINTS/MOVING DOWN IN THE BED. DR. ELAM AT BEDSIDE TO ASSESS. ATIVAN GTT RESTARTED AT 2MG/HR. SAS: 4-5. PATIENT ATE ALL OF HIS DINNER AND IS RESTING MORE COMFORTABLY WHILE INTERMITTENTLY LASHING OUT/GETTING AGITATED. REPORT GIVEN TO DUONG MARTE MAINTAINED, PATIENT REORIENTED.
--- NOTE | 2016-06-04 23:01 | NUR ---
AVSS.CONF/RESTLESS AT TIMES.SAFETY CONCERNS MAINTAINED WITH SITTER AND RESTRAINTS (+CMS).CIWA RANGING 12-16 AND ATIVAN GTT CONT ATC. NO SEIZURES NOTED.IVF CONT VIA PIV SITE.PT HNV AND DR. KUMAR MADE AWARE.BLADDER SCAN OBTAINED AND STRAIGHT CATH DONE WITH GOOD EFFECT.PLAN OF CARE REVIEWED
[2016-06-05] VITALS (17 sets, daily range): BP systolic 105–125; BP diastolic 51–80
--- NOTE | 2016-06-05 02:36 | NUR ---
0000 PATIENT RECEIVED ALERT AND RESTLESS, ORIENTED ONLY TO SELF, EXPERIENCING BOTH AUDITORY AND VISUAL HALLUCINTIONS- FREQUENT RE-ORIENTATION DONE WITHOUT SUCCESS, PULLING AT 4 POINT RESTRAINTS- ATIVAN DRIP INFUSING AT 3 MG/HR, 1:1 SITTER AT BEDSIDE FOR SAFETY, SKIN PINK, WARM AND DRY, O2 SAT 96% ON RA, BREATHE SOUNDS CLEAR, ABDOMEN SOFT, +BS, YEAST MAKER SINUS WITHOUT ECTOPY, HEART RATE HIGH 80'S/MIN, C/O OF INABILITY TO VOID- BLADDER SCAN SHOWS 950 ML- DR ABDI NOTIFIED- ALSO MADE AWARE OF PATIENT'S HALLUCINTIONS 0030 PATIENT STRAIGHT CATHETERIZED USING STERILE TECHNIQUE- 1050 ML CLEAR OBTAINED WITH REPORTED RELIEF BY PATIENT 0100 PATIENT INTERMITTENTLY BECOMES INCREASINGLY RESTLESS, ATTEMPTS TO REDIRECT AND REORIENT ONLY PARTIALLY SUCCESSFUL
--- NOTE | 2016-06-05 04:18 | NUR ---
0300 PATIENT SLEEPING, AROUSABLE WITH STIMULI BUT QUICKLY RETURNS TO SLEEP- DR ABDI MADE AWARE- HARD 4 POINT RESTRAINTS DISCONTINUED, SOFT 4 PT RESTRAINTS PLACED TO PREVENT PATIENT FROM PULLING OUT IV'S, STRAP SEWER AND FROM CLIMBING OOB, 1:1 SITTER AT BEDSIDE FOR SAFETY, ATIVAN DRIP DECREASED TO 2 MG/HR 0400 PATIENT REQUIRING TACTILE STIMULI TO AROUSE THIS HOUR- ATIVAN DRIP DECREASED TO 1MG/HR
--- NOTE | 2016-06-05 07:04 | NUR ---
0600 PATIENT REMAINS CONFUSED AND RESTLESS AT TIMES BUT MORE COOPERATIVE WITH CARE THIS AM, ATIVAN DRIP REMAINS AT 1 MG/HR, AWAITING AM MD ROUNDS
--- NOTE | 2016-06-05 07:44 | PN- Resident CRCU ---
Subjective HPI/CRCU Issues: Patient is a very young 25 YO M with PMH significant for depression, anxiety, substance abuse, multiple admissions at rehabilitation for prescription narcotics, cannabis, alcohol, and heroin, who presents with CC seizure. Incidentally, during workup he mentioned 40 pound weight loss of unknown etiology, and he endorses chronic nausea vomiting and diarrhea. He is initially admitted to [facility] for possible alcohol/benzo withdrawl. Yesterday night patient is transfered to ICU as he needs ativan drip for increased agitation. Current CRCU issues 1. Rhabdomyolysis suspected secondary to seizure vs pulling against restraints. 2. Alcohol withdrawl/MDMA intoxication - currently stable. 24 Hour Events: I saw and examined the patient today morning. He is on atilio, alert and oriented X 3, reports he feels sore all over his muscles. he is able to tolerate food well, no nausea, vomiting, dizziness, lightheadedness, diarrhea, palpitations so far. Objective Vital Signs & I&O Last 8 Hrs of Vitals and I&O: Intake & Output 06/05 1600 Intake Total 3356 Output Total 1750 Balance 1606 Intake, IV 2756 Intake, Oral 600 Output, Urine 1750 Patient 62.596 kg Weight VS Afebrile Sinus Tachycardia 80-114, last shift 66-88 BP 160/100mmHg, SAS score of 4-5 On room air IVF @100ml/hr on ativan drip I/O - - strainght cathed several times throughout the day. Exam General Appearance: no apparent distress, alert, awake, comfortable, thin, lying on bed in [facility]. Head: atraumatic, normal appearance Ears, Nose, Throat: normal pharynx Neck: normal inspection, supple, full range of motion Respiratory: normal breath sounds, chest non-tender, no respiratory distress Cardiovascular: regular rate/rhythm, normal peripheral pulses Gastrointestinal: normal bowel sounds, soft, non-tender Extremities: normal inspection, normal capillary refill, normal range of motion, multiple track edward on his arms Cranial Nerves: normal hearing, normal speech, PERRL Skin: multiple bruises over all the arms. multiple needle edward evident. Nutrition Nutrition: P.O. diet Current Medications: Current Medications Sig/Yissel Start time Last Medication Dose Route Stop Time Status Admin Chlordiazepoxide HCl 50 MG TID 06/05 2200 AC PO Chlordiazepoxide HCl 25 MG ONCE ONE 06/05 1815 DC 06/05 PO 06/05 1816 1817 Chlordiazepoxide HCl 25 MG TID 06/05 1000 DC 06/05 PO 1525 Fluoxetine HCl 60 MG DAILY 06/03 1000 DC 06/04 PO 0958 Folic Acid 1 MG DAILY 06/04 1259 AC 06/05 PO 0943 Haloperidol 1 MG Q6P PRN 06/05 1015 AC PO Heparin Sodium 5,000 UNIT Q8 06/02 2200 DC 06/05 (Porcine) SC 0523 Lorazepam 100 MG Q6H 06/04 1030 DC 06/05 Sodium Chloride 1,000 ML IV 0004 Melatonin 5 MG AT BEDTIME 06/03 0030 AC 06/04 PO 2207 Multivitamins 1 TAB DAILY 06/04 1259 AC 06/05 PO 0943 Nicotine 21 MG DAILY 06/04 1000 AC 06/05 TOP 0944 Ondansetron HCl 4 MG BID 06/03 2200 AC 06/05 PO 0943 Potassium Chloride 10 MEQ ONCE ONE 06/05 0715 DC 06/05 IV 06/05 0716 0956 Potassium Chloride 40 MEQ ONCE ONE 06/04 1930 DC 06/04 PO 06/04 193 2013 Sodium Chloride 1,000 ML BOLUS ONE 06/05 0830 DC 06/05 IV 06/05 0929 0930 Sodium Chloride 1,000 ML Q10H 06/04 1930 AC 06/05 IV 1440 Thiamine HCl 100 MG DAILY 06/04 1259 AC 06/05 Sodium Chloride 100 ML IV 06/06 1012 1435 Zolpidem Tartrate 5 MG AT BEDTIME NEED.. 06/02 2200 DC 06/03 PO 2232 Impression/Plan Impression/Problem List Impression: Patient is a very young 25 YO M with PMH significant for depression, anxiety, substance abuse, multiple admissions at rehabilitation for prescription narcotics, cannabis, alcohol, and heroin, who presents with CC seizure. Incidentally, during workup he mentioned 40 pound weight loss of unknown etiology, and he endorses chronic nausea vomiting and diarrhea. He is initially admitted to [facility] for possible alcohol/benzo withdrawl. Yesterday night patient is transfered to ICU as he needs ativan drip for increased agitation. Yesterday he was on ativan drip and intermittent doses of haldol throughout the day. Although he was overly sedated and slept for several hours in the afternoon , he woke up and more alert, oriented after that. He tried to get out of the bed, on 4 point hard restraints through out the day. Today he is much more oriented and alert. PLAN Alcohol /benzo withdrawl vs Intoxication with sympathomimetic agent * Agitation, euphoria with Dilated pupils yesterday - currently stable * Questionable intoxication yesterday after his girl friend visited him. * He was off the lorazepam drip today and placed on librium 25mg Q6. * Haldol 1mg Q6 PRN for agitation. * Psych consulted - on board * On upper extremity soft restraints, atilio vest. Elevated CK with transaminitis * CK level yesterday was [id number] with AST/ALT around 500's * Secondary to seizure vs a combination of dehydration & pulling restraints. * He feels his muscles are sore * Placed on NS@100ml/hr overnight and received 250ml/hr today morning onwards. * His CK in the afternoon is around 18K. Will follow up with continuing hydration. Persistant tachycardia and high blood pressure resolved. Problem List: 1. Alcohol withdrawal seizure 2. Transaminitis 3. Elevated CK Pain Ratin Tomorrow's Labs & Rationales: ICU bundle cbc Plan DVT/Prophylaxis: mechanical Code Status: Full Code
--- NOTE | 2016-06-05 08:25 | PN- CRCU ---
Subjective HPI/Critical Care Issues: The patient appears more calm today, and he is oriented to place. He is arousable and on 1 mg of Ativan per hour. His CIWA score has remained between 4 and 12 overnight. He remains confused and is intermittently hallucinating. The patient has had negative straight cath as he is having some issues with urinary retention. Of note the patient's CPK was greater than 32,000 and he was started on IV fluids. His CPK is slowly improving his BUN and creatinine remain normal. There is no report of nausea, vomiting, fever or chills. Objective Current Medications: Current Medications Sig/Yissel Start time Last Medication Dose Route Stop Time Status Admin Alprazolam 0.5 MG .STK-MED ONE 06/04 1145 DC PO 06/04 1146 Fluoxetine HCl 60 MG DAILY 06/03 1000 AC 06/04 PO 0958 Folic Acid 1 MG DAILY 06/04 1259 AC PO Haloperidol 5 MG ONCE ONE 06/04 1300 DC 06/04 IM 06/04 1301 1309 Haloperidol 2.5 MG ONCE ONE 06/04 1200 CAN PO 06/04 1201 Haloperidol 2.5 MG ONCE ONE 06/04 1200 DC 06/04 IM 06/04 1201 1208 Heparin Sodium 5,000 UNIT Q8 06/02 2200 AC 06/05 (Porcine) SC 0523 Lorazepam 100 MG Q6H 06/04 1030 AC 06/05 Sodium Chloride 1,000 ML IV 0004 Lorazepam 100 MG Q24H 06/04 0945 CAN Sodium Chloride 1,000 ML IV Lorazepam 50 MG Q24H 06/04 0230 DC 06/04 Sodium Chloride 500 ML IV 0418 Lorazepam See Dose Q1P PRN 06/02 1830 DC 06/04 Insts (1) IV 0005 Magnesium Sulfate 1 GM ONCE ONE 06/04 1200 DC 06/04 Dextrose/Water 100 ML IV 06/04 1559 1230 Melatonin 5 MG AT BEDTIME 06/03 0030 AC 06/04 PO 2207 Multivitamins 1 TAB DAILY 06/04 1259 AC PO Nicotine 7 MG DAILY 06/04 1000 CAN TOP Nicotine 21 MG DAILY 06/04 1000 AC 06/04 TOP 0958 Non-Formulary 0 SEE ADMIN CRITERIA 06/04 1345 DC Medication ANY Ondansetron HCl 4 MG BID 06/03 2200 AC 06/04 PO 0958 Potassium Chloride 10 MEQ ONCE ONE 06/05 0715 DC IV 06/05 0716 Potassium Chloride 40 MEQ ONCE ONE 06/04 1929 DC 06/04 PO 06/04 Potassium Chloride 10 MEQ ONCE ONE 06/04 0815 DC 06/04 IV 06/04 0816 0915 Sodium Chloride 1,000 ML Q10H 06/04 1930 r 06/05 IV 0523 Thiamine HCl 100 MG DAILY 06/04 1259 AC 06/04 Sodium Chloride 100 ML IV 06/06 1012 1538 Zolpidem Tartrate 5 MG AT BEDTIME NEED.. 06/02 2199 AC 06/03 PO 2232 Dose Instructions: (1)Lorazepam: See admin criteria Vital Signs & I&O Last 24 Hrs of Vitals and I&O: Vital Signs Date Time Temp Pulse Resp B/P Pulse O2 O2 Flow FiO2 Ox Delivery Rate 06/05 0400 97.5 68 14 120/70 06/05 0400 98 Room Air 06/05 0300 68 18 120/65 06/05 0200 82 18 111/77 06/05 0100 82 20 110/53 06/05 0000 97.7 88 16 122/80 06/05 0000 96 Room Air 06/05 0000 97.7 88 16 122/80 96 Room Air 06/04 2200 87 20 130/92 06/04 2100 107 20 127/66 06/04 2000 97.7 103 20 131/68 06/04 1900 97.6 90 21 141/100 06/04 1800 97.6 70 20 124/84 06/04 1700 97.6 72 18 132/74 /03 1600 97.6 74 16 126/64 / 1600 97.6 74 16 126/64 93 Room Air Room Air 06/04 1600 94 Room Air Room Air 06/04 1500 97.7 80 17 127/71 / 1400 97.7 96 21 119/68 06/04 1330 97.7 190 46 164/98 / 1300 97.7 174 44 159/82 /03 1200 97.7 150 26 160/100 06/04 1200 96 Room Air Room Air 06/04 1100 98.0 147 26 168/103 06/04 1000 97.8 122 22 161/88 06/04 0947 97.8 122 20 161/84 06/04 0938 97.8 122 20 161/84 06/04 0900 97.8 122 20 161/84 Intake & Output 06/05 1600 06/05 0800 06/05 0000 Intake Total 1034 410 Output Total 1050 Balance -16 410 Intake, IV 914 250 Intake, Oral 120 160 Number 0 Bowel Movements Output, Urine 1050 Exam General Appearance: arousable, tremulous Head: atraumatic, normal appearance Neck: supple Respiratory: normal breath sounds, no respiratory distress, lungs clear Cardiovascular: regular rate/rhythm, improved tachycardia Abdomen: normal bowel sounds, soft, non-tender Extremities: no edema Skin: intact, normal color, warm/dry Results Last 24 Hrs of Lab Results: Laboratory Tests 06/05/16 0340: Anion Gap 17 H, Estimated GFR > 60, Glucose 84, Calcium 9.1, Phosphorus 5.7 H, Magnesium 2.1, Total Bilirubin 1.0, AST 438 H, ALT 178 H, Creatine Kinase 06847 H, Albumin 4.4 06/04/16 1655: Urine Opiates Screen < 100.00, Methadone Screen < 40, Barbiturate Screen < 60, Ur Phencyclidine Scrn < 6.00, Amphetamines Screen < 100, U Benzodiazepines Scrn 398 H, Urine Cocaine Screen < 50, Urine Cannabis Screen > 80.00 H 06/04/16 1635: Lactic Acid Cancelled 06/04/16 1600: Anion Gap 18 H, Estimated GFR > 60, Glucose 103 H, Lactic Acid 0.9, Calcium 10.1, Phosphorus 6.8 H, Magnesium 2.6 H, Total Bilirubin 0.9, AST 420 H, ALT 199 H, Creatine Kinase > 25387 H, Albumin 5.2 H 06/04/16 1440: pH 7.40, pCO2 38, pO2 98, HCO3 23, ABG O2 Sat (Measured) 97.0, P-50 (Temp Corrected) NO, Carboxyhemoglobin 0.3 L, O2 Concentration % RA, Temperature 98.0 , O2 Delivery Method RA, Phlebotomy Draw Site RIGHT RADIAL 06/04/16 1427: Sodium Cancelled, Potassium Cancelled, Chloride Cancelled, Carbon Dioxide Cancelled, Anion Gap Cancelled, BUN Cancelled, Creatinine Cancelled, BUN/ Creatinine Ratio Cancelled, Creatine Kinase Cancelled Impression/Plan Impression/Plan Impression/Plan: 1. Alcohol withdrawal/delirium tremens. 2. Rhabdomyolysis with hyperphosphatemia. 3. Polysubstance abuse. 4. Urinary retention. 5. Tachycardia which is now improved. 6. Transaminitis secondary to alcohol hepatitis; abdominal ultrasound consistent with a fatty liver. 7. Thrombocytopenia secondary to EtOH use. Recommendations: * Give 1 L normal saline now. * Increase IV fluid rate to 50 ML per hour. * Potassium repletion ordered. * Check electrolytes, CPK and renal function at 1pm. * Discontinue straight catheterizations and Lasix a permanent Bassett catheter. * A 1:1 sitter needs to remain in the room to ensure the patient does not pull out the catheter. * We will consult nephrology to discuss the issue of urine alkalinization. * Start Librium 25 mg orally every 8 hours. * Titrate Ativan drip down to off if able. * Follow-up psychiatry recommendations. * Complete high-dose thiamine therapy. * Continue multivitamin and folate. * Continue DVT prophylaxis with Alps, however does continue subcutaneous heparin in the setting of thrombocytopenia.
--- NOTE | 2016-06-05 12:04 | PN- Cardiology ---
Subjective Subjective: Mental status improving. Remains on CIWA protocol. Remains on Ativan. Denies any cardiovascular symptoms. Heart rate better controlled. Objective Vital Signs and I&Os Vital Signs Date Time Temp Pulse Resp B/P Pulse O2 O2 Flow FiO2 Ox Delivery Rate 06/05 0800 97.8 76 12 110/70 98 Room Air Room Air 06/05 0400 97.5 68 14 120/70 06/05 0400 98 Room Air 06/05 0300 68 18 120/65 06/05 0200 82 18 111/77 / 0100 82 20 110/53 /04 0000 97.7 88 16 122/80 / 0000 96 Room Air 06/05 0000 97.7 88 16 122/80 96 Room Air 06/04 2200 87 20 130/92 06/04 2100 107 20 127/66 06/04 2000 97.7 103 20 131/68 06/04 1900 97.6 90 21 141/100 06/04 1800 97.6 70 20 124/84 06/04 1700 97.6 72 18 132/74 06/04 1600 97.6 74 16 126/64 06/04 1600 97.6 74 16 126/64 93 Room Air Room Air 06/04 1600 94 Room Air Room Air 06/04 1500 97.7 80 17 127/71 06/04 1400 97.7 96 21 119/68 06/04 1330 97.7 190 46 164/98 06/04 1300 97.7 174 44 159/82 Intake & Output 06/05 1600 06/05 0800 06/05 0000 06/04 1600 06/04 0800 06/04 0000 Intake Total 7337 219 0392 140 600 Output Total 1050 400 Balance -16 410 1550 140 600 Intake, IV 271 367 6083 140 Intake, Oral 120 160 550 600 Number 0 Bowel Movements Output, Urine 1050 400 Current Medications: Current Medications Sig/Yissel Start time Last Medication Dose Route Stop Time Status Admin Chlordiazepoxide HCl 25 MG TID 06/05 1000 AC 06/05 PO 0945 Fluoxetine HCl 60 MG DAILY 06/03 1000 DC 06/04 PO 0958 Folic Acid 1 MG DAILY 06/04 1259 AC 06/05 PO 0943 Haloperidol 1 MG Q6P PRN 06/05 1015 AC PO Haloperidol 5 MG ONCE ONE 06/04 1300 DC 06/04 IM 06/04 1301 1309 Heparin Sodium 5,000 UNIT Q8 06/02 2200 DC 06/05 (Porcine) SC 0523 Lorazepam 100 MG Q6H 06/04 1030 DC 06/05 Sodium Chloride 1,000 ML IV 0004 Lorazepam See Dose Q1P PRN 06/02 1830 DC 06/04 Insts (1) IV 0005 Magnesium Sulfate 1 GM ONCE ONE 06/04 1200 DC 06/04 Dextrose/Water 100 ML IV 06/04 1559 1230 Melatonin 5 MG AT BEDTIME 06/03 0030 AC 06/04 PO 2207 Multivitamins 1 TAB DAILY 06/04 1259 AC 06/05 PO 0943 Nicotine 21 MG DAILY 06/04 1000 AC 06/05 TOP 0944 Non-Formulary 0 SEE ADMIN CRITERIA 06/04 1345 DC Medication ANY Ondansetron HCl 4 MG BID 06/03 220 AC 06/05 PO 0943 Potassium Chloride 10 MEQ ONCE ONE 06/05 0715 DC 06/05 IV 06/05 0716 0956 Potassium Chloride 40 MEQ ONCE ONE 06/04 1930 DC 06/04 PO 06/04 193 2013 Sodium Chloride 1,000 ML BOLUS ONE 06/05 0830 DC 06/05 IV 06/05 0929 0930 Sodium Chloride 1,000 ML Q10H 06/04 1930 AC 06/05 IV 0523 Thiamine HCl 100 MG DAILY 06/04 1259 AC 06/04 Sodium Chloride 100 ML IV 06/06 1012 1538 Zolpidem Tartrate 5 MG AT BEDTIME NEED.. 06/02 2200 DC 06/03 PO 2232 Dose Instructions: (1)Lorazepam: See admin criteria Results Last 48 Hrs of Labs/Mics: Laboratory Tests 06/05/16 0340: Anion Gap 17 H, Estimated GFR > 60, Glucose 84, Calcium 9.1, Phosphorus 5.7 H, Magnesium 2.1, Total Bilirubin 1.0, AST 438 H, ALT 178 H, Creatine Kinase 21286 H, Albumin 4.4 06/04/16 1655: Urine Opiates Screen < 100.00, Methadone Screen < 40, Barbiturate Screen < 60, Ur Phencyclidine Scrn < 6.00, Amphetamines Screen < 100, U Benzodiazepines Scrn 398 H, Urine Cocaine Screen < 50, Urine Cannabis Screen > 80.00 H 06/04/16 1635: Lactic Acid Cancelled 06/04/16 1600: Anion Gap 18 H, Estimated GFR > 60, Glucose 103 H, Lactic Acid 0.9, Calcium 10.1, Phosphorus 6.8 H, Magnesium 2.6 H, Total Bilirubin 0.9, AST 420 H, ALT 199 H, Creatine Kinase > 53202 H, Albumin 5.2 H 06/04/16 1440: pH 7.40, pCO2 38, pO2 98, HCO3 23, ABG O2 Sat (Measured) 97.0, P-50 (Temp Corrected) NO, Carboxyhemoglobin 0.3 L, O2 Concentration % RA, Temperature 98.0 , O2 Delivery Method RA, Phlebotomy Draw Site RIGHT RADIAL 06/04/16 1427: Sodium Cancelled, Potassium Cancelled, Chloride Cancelled, Carbon Dioxide Cancelled, Anion Gap Cancelled, BUN Cancelled, Creatinine Cancelled, BUN/ Creatinine Ratio Cancelled, Creatine Kinase Cancelled 06/04/16 0640: Anion Gap 16, Estimated GFR > 60, BUN/Creatinine Ratio 13.8, Magnesium 1.9, Total Bilirubin 0.8, Direct Bilirubin 0.4, AST 256 H, ALT 167 H, Alkaline Phosphatase 95, Total Protein 7.7, Albumin 4.8, CBC w Diff NO MAN DIFF REQ, RBC 4.81, MCV 94.8 H, MCH 33.3 H, RDW 14.1, MPV 7.9, Gran % 72.6, Lymphocytes % 15.2 L, Monocytes % 11.7 H, Eosinophils % 0.1, Basophils % 0.4, Absolute Granulocytes 4.1, Absolute Lymphocytes 0.9 L, Absolute Monocytes 0.7 H, Absolute Eosinophils 0, Absolute Basophils 0, PUBS MCHC 35.1 Microbiology 06/04 0625 UPPER RESP: Surveillance Culture - COMP Assessment/Plan Assessment/Plan Assessment: 1. Persistent sinus tachycardia 2. Alcohol withdrawal/delirium 3. Rhabdomyolysis with elevated CPK 4. Polysubstance abuse 5. Urinary retention 6. Transaminitis related to probable alcoholic hepatitis 7. Thrombocytopenia Recommendations: -The patient's heart rate is much improved today. Continue to monitor for 24 hours -From a cardiac standpoint, the patient appears to be stable -Continue to monitor off of beta blockers -Continue IV fluid hydration with monitoring of CPK and renal function Continue telemetry? Yes
--- NOTE | 2016-06-05 12:51 | Cons- Nephrology ---
General Information and HPI Consulting Request Date of Consult: 06/05/16 Requested By: ANGELIQUE DEL TORO MD Reason for Consult: Rhabdomyolysis History of Present Illness: The patient is a 25-year-old man with a history of polysubstance abuse including chronic alcoholism who was admitted on 06/02/16 following a generalized seizure while he was in the passenger seat of a car witnessed by his mother who was driving. This was his first seizure. He has had bouts of severe agitation since admission requiring sedation and restraints. I am being asked to see him because of a CK level of over 30,000. Fortunately, renal function remains normal with good urine output, a creatinine of 0.6, and no hyperkalemia or metabolic acidosis. In fact, serum potassium has been low. Calcium and magnesium levels have been within normal limits. The patient's past history includes IV heroin use but not within the last few years. Past medical history is positive for alcohol dependence, IV drug abuse, opioid dependence, substance abuse, anxiety, depression and suicide ideation. He has had multiple admissions for drug and alcohol rehabilitation. This was his first seizure. Medications: See below Family history: Negative for any known kidney disease in his parents or other family members Social history: Alcohol and substance abuse as noted above Allergies/Medications Allergies: Coded Allergies: No Known Allergies (06/02/16) Home Med List: Alprazolam (Xanax) 1 MG TABLET 1 TAB PO TID ANXIETY (Reported) Fluoxetine HCl 20 MG TABLET 1 TAB PO Q8 ANXIETY (Reported) Zolpidem Tartrate (Ambien) 5 MG TABLET 1 TAB PO QPMP SLEEP AID (Reported) Review of Systems Review of Systems: Review of Systems Constitutional: Reports: malaise, unexplained weight loss. Denies: chills, diaphoresis, fever. EENTM: Denies: blurred vision, visual changes. Cardiovascular: Reports: palpitations. Denies: chest pain, edema, orthopena, peripheral edema, syncope. Respiratory: Denies: short of breath, wheezing. GI: Reports: diarrhea, nausea, changes in stool, vomiting. Denies: abdominal pain, bloody stool. Genitourinary: Denies: dysuria, frequency, hematuria, hesitation, pain, urgency. Musculoskeletal: Reports: diffuse muscle aches and pains. Skin: Reports: no symptoms. Neurological/Psychological: Reports: anxiety, depressed, emotional problems, tonic-clonic seizures. Hematologic/Endocrine: Reports: no symptoms. 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 Psychosocial History Where Do You Live? Home Primary Language: Albanian Smoking Status: Current Everyday Smoker ETOH Use: alcoholic Functional Ability ADLs Independent: dressing, eating, toileting, bathing. Ambulation: independent IADLs Independent: shopping, housework, finances, food prep, telephone, transportation , medication admin. Exam & Diagnostic Data Vital Signs and I&O Vital Signs Date Time Temp Pulse Resp B/P Pulse O2 O2 Flow FiO2 Ox Delivery Rate 06/05 1200 97 Room Air Room Air 06/05 0800 97.8 76 12 110/70 98 Room Air Room Air 06/05 0800 97 Room Air Room Air 06/05 0400 97.5 68 14 120/70 06/05 0400 98 Room Air 06/05 0300 68 18 120/65 06/05 0200 82 18 111/77 06/05 0100 82 20 110/53 /04 0000 97.7 88 16 122/80 04 0000 96 Room Air 06/05 0000 97.7 88 16 122/80 96 Room Air 06/04 2200 87 20 130/92 06/04 2100 107 20 127/66 06/04 2000 97.7 103 20 131/68 06/04 1900 97.6 90 21 141/100 06/04 1800 97.6 70 20 124/84 06/04 1700 97.6 72 18 132/74 /03 1600 97.6 74 16 126/64 06/04 1600 97.6 74 16 126/64 93 Room Air Room Air 06/04 1600 94 Room Air Room Air 06/04 1500 97.7 80 17 127/71 /03 1400 97.7 96 21 119/68 06/04 1330 97.7 190 46 164/98 / 1300 97.7 174 44 159/82 Intake & Output 06/05 1600 06/05 0400 06/04 1600 06/04 0400 06/03 1600 06/03 0400 Intake Total 2759 195 4940 600 2850 1300 Output Total 1050 400 Balance -16 410 1843 827 7362 1300 Intake, IV 913 822 4175 2000 1000 Intake, Oral 120 160 550 600 850 300 Number 0 Bowel Movements Output, Urine 1050 400 Patient 138 lb Weight Physical Exam: General: Well-developed white male in NAD Skin: No rash or jaundice; multiple tattoos and piercings HEENT: Conjunctivae pink, sclerae anicteric, mucous membranes moist Neck: Without masses or thyromegaly, no supraclavicular or cervical adenopathy Chest: Clear to P&A Heart: Regular rate and rhythm without S3 or rub Abdomen: Soft and nontender without palpable masses or organomegaly Extremities: Without cyanosis or edema Neuro: He is awake and alert, no focal findings, no asterixis or myoclonus Assessment/Plan Assessment/Recommendations Assessment: 25-year-old male with a history of alcohol dependence and polysubstance abuse including IV drug abuse, now comes in with his first seizure and is found to have a CK level of approximately 32,000 indicating severe rhabdomyolysis but fortunately without any evidence of renal failure or other significant electrolyte disturbances other than mild hypokalemia. He is being aggressively hydrated with no signs of renal dysfunction at this time. Recommendations: 1. Would continue aggressively hydrating with IV normal saline; would not use bicarbonate containing fluids as I believe this will only make management of his electrolytes (especially potassium) more difficult, and he seems to be doing well with normal saline 2. Monitor BMP, calcium, phosphorus, magnesium and CK levels daily 3. Continue sedation protocol as needed Thank you. Will follow along with you.
--- NOTE | 2016-06-05 16:07 | PN- Psychiatry ---
Assessment/Plan Impression: The patient's delirium and agitation has mostly resolved from yesterday, and the patient is no longer in 4-point hard restraints, but remains in a Anabell vest. Labs today indicate that the patient's elevated CK is resolving, and he is being followed by nephrology. Also, AST is increasingly elevated, now at 438; ALT has moderated to 178, but also remains elevated. The patient has a history of prescribed alprazolam for 3 mg per day for several years. This is roughly the equivalent of 6 mg daily of lorazepam. The patient' s current dosing of chlordiazepoxide 25 mg PO every 8 hours, is equivalent to half of that amount, or roughly 3 mg daily of lorazepam. This patient has recently had a seizure, which brought into the hospital, and in the middle of alcohol withdrawal, current dosing of chlordiazepoxide may be insufficient to keep him comfortable, but will probably prevent further seizure events. Please continue to monitor CIWA, as well as vital signs, for signs of clinical alcohol withdrawal. Due to this patient's currently irritated liver, we would suggest returning to the EtOH detox protocol, which uses lorazepam instead of chlordiazepoxide, which will likely be less irritating to that organ. This can be found in the order set under "EtOH detox." This should be reinitiated at Day One. Although CIWA scores have been moderating, the patient may still possibly present with hallucinosis, associated with alcohol withdrawal, and possibly delirium tremens. Please maintain a low threshold for reinitiating IV lorazepam. CIWA from 1000 06/05/16: [id number]8-32-21 VS as of 0900 06/05/16: 119/61, 74, 97.8, 20 RR, 98% on room air (0800) Lorazepam drip was discontinued early this morning, he currently has chlordiazepoxide 25 mg by mouth 3 times per day. Suggestion: 1. EtOH detox protocol order set, using lorazepam for alcohol withdrawal treatment. 2. Please continue to administer daily thiamine, folic acid and multivitamin. If the patient is unable to take by mouth, please administer thiamine via another route, at least 100 mg daily. 3. Please hold the following medications: Fluoxetine/Prozac, zolpidem/Ambien. 4. Please add haloperidol 1 mg PO every 6 hours as needed for agitation or hallucinosis. If necessary, this may be increased to 2-3 mg every 8 hours, as needed, for severe or dangerous agitation; use PO route if possible, IM route if patient unable to take by mouth. a. Hold haloperidol for oversedation or respiratory depression b. Hold haloperidol if EKG shows arrhythmia, or if QTC greater than 475 ms. c. Monitor and replete electrolytes, in particular potassium and magnesium to the upper portion of the normal range. Hypomagnesemia is associated with TdP. We will continue to follow along with you. Thank you for asking us to participate in Sergio's care. Carlo Lee APRN, pager [phone] Subjective Subjective: I visited the patient today, 06/05/2016, at 0945, in ICU room 112. His 1:1 safety monitor was present. He is alert, lying in bed, having moderate difficulty following instructions from his nurse not to take his Moisés coat off, but is ultimately redirectable. He is oriented to person, place. He denies suicidal ideation. He denies auditory, visual or tactile hallucinations, but presents no myke delusions. Objective Last 24 Hrs of Vital Signs/I&O Vital Signs Date Time Temp Pulse Resp B/P Pulse O2 O2 Flow FiO2 Ox Delivery Rate 06/05 1200 97.9 70 18 112/60 06/05 1200 97 Room Air Room Air 06/05 1100 97.8 68 20 115/66 /04 1000 97.8 78 17 105/51 / 0900 97.8 74 20 119/61 / 0800 97.8 76 12 110/70 /04 0800 97.8 76 12 110/70 98 Room Air Room Air 06/05 0800 97 Room Air Room Air 06/05 0400 97.5 68 14 120/70 / 0400 98 Room Air / 0300 68 18 120/65 /04 0200 82 18 111/77 /04 0100 82 20 110/53 /04 0000 97.7 88 16 122/80 01/ 0000 96 Room Air /04 0000 97.7 88 16 122/80 96 Room Air 06/04 2200 87 20 130/92 06/04 2100 107 20 127/66 06/04 1999 97.7 103 20 131/68 06/04 1900 97.6 90 21 141/100 06/04 1800 97.6 70 20 124/84 06/04 1700 97.6 72 18 132/74 06/04 1600 97.6 74 16 126/64 06/04 1600 97.6 74 16 126/64 93 Room Air Room Air 06/04 1600 94 Room Air Room Air Intake & Output 06/05 1600 06/05 0800 06/05 0000 Intake Total 1034 410 Output Total 1050 Balance -16 410 Intake, IV 914 250 Intake, Oral 120 160 Number 0 Bowel Movements Output, Urine 1050 Patient 138 lb Weight Laboratory Tests 06/05 06/05 06/04 06/04 1245 0340 1655 1635 Chemistry Sodium (137 - 145 mmol/L) 138 139 Potassium (3.5 - 5.1 mmol/L) 4.0 3.4 L Chloride (98 - 107 mmol/L) 101 100 Carbon Dioxide (22 - 30 mmol/L) 28 23 Anion Gap (5 - 16) 9 17 H BUN (9 - 20 mg/dL) 12 13 Creatinine (0.7 - 1.2 mg/dL) 0.7 0.6 L Estimated GFR (>60 ml/min) > 60 > 60 BUN/Creatinine Ratio (7 - 25 %) 17.1 Glucose (65 - 99 mg/dL) 84 Lactic Acid Cancelled Calcium (8.4 - 10.2 mg/dL) 9.1 Phosphorus (2.5 - 4.5 mg/dL) 5.7 H Magnesium (1.6 - 2.3 mg/dL) 2.1 Total Bilirubin (0.2 - 1.3 mg/dL) 1.0 AST (17 - 59 U/L) 438 H ALT (21 - 72 U/L) 178 H Creatine Kinase (55 - 170 U/L) 32392 H 25412 H Albumin (3.5 - 5.0 g/dL) 4.4 Toxicology Urine Opiates Screen (>2000 NG/ML) < 100.00 Methadone Screen (>300 NG/ML) < 40 Barbiturate Screen (>200 NG/ML) < 60 Ur Phencyclidine Scrn (>25 NG/ML) < 6.00 Amphetamines Screen (>1000 NG/ML) < 100 U Benzodiazepines Scrn (>200 NG/ML) 398 H Urine Cocaine Screen (>300 NG/ML) < 50 Urine Cannabis Screen (>50 NG/ML) > 80.00 H 06/04 1600 Chemistry Sodium (137 - 145 mmol/L) 140 Potassium (3.5 - 5.1 mmol/L) 3.3 L Chloride (98 - 107 mmol/L) 96 L Carbon Dioxide (22 - 30 mmol/L) 26 Anion Gap (5 - 16) 18 H BUN (9 - 20 mg/dL) 15 Creatinine (0.7 - 1.2 mg/dL) 0.8 Estimated GFR (>60 ml/min) > 60 Glucose (65 - 99 mg/dL) 103 H Lactic Acid (0.7 - 2.1 mmol/L) 0.9 Calcium (8.4 - 10.2 mg/dL) 10.1 Phosphorus (2.5 - 4.5 mg/dL) 6.8 H Magnesium (1.6 - 2.3 mg/dL) 2.6 H Total Bilirubin (0.2 - 1.3 mg/dL) 0.9 AST (17 - 59 U/L) 420 H ALT (21 - 72 U/L) 199 H Creatine Kinase (55 - 170 U/L) > 45793 H Albumin (3.5 - 5.0 g/dL) 5.2 H
--- NOTE | 2016-06-05 19:08 | NUR ---
Received patient @ 0800, drowsy/difficult to arouse, ativan gtt running at 1mg/hr. SAS-3. Patient woken up and sat up. Fed himself all of his meals today. More oriented as the day went on. 25 mg PO librium started/given @ 0900 w/ SAS-4. Ativan shut off at 1000 w/ SAS of 3. Patient tolerating librium well. Denies anxiety/complaints. Putting out large amounts of clear/straw urine in his butler placed this morning at 8 am. Sitter at bedside and atilio in place. Patient reorientable/following commands. Four point soft restraints d/c'd this am. Patient c/o some anxiety around 1800. Additional dose of 25 mg po librium ordered and given. Librium increased to 50 mg TID. Patient informed and agreeable. Safety maintained.
[2016-06-06 00:15] VITALS: BP 128/70
--- NOTE | 2016-06-06 00:24 | NUR ---
AVSS.A/OX3.FOLLOW COMMANDS.CIWA AT 4. MANTILLA WITH +CMS.NO C'O GEN DISCOMFORT.SAFETY PRECAUTION MAINTAINED WITH SITTER. IVF CONT VIA PIV SITE. LAURIE PATENT WITH GOOD UO.PLAN OF CARE REVIEWED
[2016-06-06 04:33] VITALS: BP 118/64
[2016-06-06 05:57] VITALS: BP 111/53
--- NOTE | 2016-06-06 07:28 | NUR ---
0700: RECEIVED PT IN BED. A+OX3. ON RA, LUNGS CLEAR, DENIES SOB. NSR ON MONITOR, RATE 60-70'S. AFEBRILE, DENIES CHEST PAIN. +BS, DENIES NAUSEA, +FLATUS, NO BM AT THIS TIME. SULLIVAN TO BEDSIDE DRAINAGE WITH ADEQUATE AMOUNTS OF CLEAR YELLOW URINE. SKIN INTACT. #[address] WITH NS @ 250 ML/HR. SITTER AT BEDSIDE. PT CALM AND COOPERATIVE AT THIS TIME. ALPS ON.
--- NOTE | 2016-06-06 07:50 | PN- Resident CRCU ---
Subjective HPI/CRCU Issues: Patient is a very young 25 YO M with PMH significant for depression, anxiety, substance abuse, multiple admissions at rehabilitation for prescription narcotics, cannabis, alcohol, and heroin, who presents with CC seizure. Incidentally, during workup he mentioned 40 pound weight loss of unknown etiology, and he endorses chronic nausea vomiting and diarrhea. He is initially admitted to [facility] for possible alcohol/benzo withdrawl. Yesterday night patient is transfered to ICU as he needs ativan drip for increased agitation. Current CRCU issues 1. Rhabdomyolysis suspected secondary to seizure vs pulling against restraints. 2. Alcohol withdrawl/MDMA intoxication - currently stable. 24 Hour Events: I saw and examined the patient today morning. He is lying comfortably on his bed , alert and oriented. He feels much better getting 250ml NS per hr. He is off all the restraints and sitter. Objective Vital Signs & I&O Last 8 Hrs of Vitals and I&O: Intake & Output 06/06 1600 Intake Total 5192 Output Total 5400 Balance -208 Intake, IV 3752 Intake, Oral 1440 Output, Stool 0 Output, Urine 5400 VS stable Temp - afebrile HR - 80's BP - 110-130/80mmHg On room air I/O - 1790/6490 On IVF @250ml/hr Exam General Appearance: well developed/nourished, no apparent distress, alert, awake , comfortable Head: atraumatic, normal appearance Ears, Nose, Throat: normal pharynx, normal ENT inspection, hearing grossly normal Neck: normal inspection, supple Respiratory: normal breath sounds, chest non-tender, no respiratory distress Cardiovascular: regular rate/rhythm, normal peripheral pulses Gastrointestinal: normal bowel sounds, soft, non-tender Extremities: normal inspection, normal capillary refill, normal range of motion, sore with multiple track edward and bruises Cranial Nerves: normal hearing, normal speech, PERRL Skin: intact IV Drips IV Drips: NS @ 250ml/hr Nutrition Nutrition: P.O. diet Current Medications: Current Medications Sig/Yissel Start time Last Medication Dose Route Stop Time Status Admin Chlordiazepoxide HCl 50 MG TID 06/05 2200 AC 06/06 PO 1542 Docusate Sodium 100 MG DAILY NEEDED PRN 06/06 1300 AC PO Folic Acid 1 MG DAILY 06/04 1259 AC 06/06 PO 0848 Haloperidol 1 MG Q6P PRN 06/05 1015 AC PO Magnesium Sulfate 1 GM ONCE ONE 06/06 0830 DC 06/06 Dextrose/Water 100 ML IV 06/06 1229 0828 Melatonin 5 MG AT BEDTIME 06/03 0030 AC 06/05 PO 2145 Multivitamins 1 TAB DAILY 06/04 1259 AC 06/06 PO 0848 Nicotine 21 MG DAILY 06/04 1000 AC 06/06 TOP 0849 Ondansetron HCl 4 MG BID 06/03 2200 AC 06/06 PO 0848 Potassium Chloride 10 MEQ ONCE ONE 06/06 0830 DC 06/06 IV 06/06 0831 0915 Senna/Docusate Sodium 2 TAB ONCE ONE 06/06 1300 DC 06/06 PO 06/06 1301 1443 Sodium Chloride 1,000 ML Q10H 06/04 1930 AC 06/06 IV 1338 Thiamine HCl 100 MG DAILY 06/07 1000 AC PO Thiamine HCl 100 MG DAILY 06/04 1259 DC 06/06 Sodium Chloride 100 ML IV 06/06 1012 1038 Antibiotics Antibiotics? none Impression/Plan Impression/Problem List Impression: Patient is a very young 25 YO M with PMH significant for depression, anxiety, substance abuse, multiple admissions at rehabilitation for prescription narcotics, cannabis, alcohol, and heroin, who presents with CC seizure. Incidentally, during workup he mentioned 40 pound weight loss of unknown etiology, and he endorses chronic nausea vomiting and diarrhea. He is initially admitted to [facility] for possible alcohol/benzo withdrawl. Yesterday night patient is transfered to ICU as he needs ativan drip for increased agitation. Yesterday he was on ativan drip and intermittent doses of haldol throughout the day. Although he was overly sedated and slept for several hours in the afternoon , he woke up and more alert, oriented after that. He tried to get out of the bed, on 4 point hard restraints through out the day. Today he is much more oriented and alert. PLAN Alcohol /benzo withdrawl vs Intoxication with sympathomimetic agent * Agitation, euphoria with Dilated pupils - currently stable * placed on librium 25mg TID - tolerating well with very low CIWA scores. * Haldol 1mg Q6 PRN for agitation. * Psych consulted - on board. * OFF restraints and sitter. Elevated CK with transaminitis * CK level Today is around 10,000 still getting fluids @250ml/hr. * Secondary to seizure vs a combination of dehydration & pulling restraints. * He feels his muscles are sore . Persistant tachycardia and high blood pressure resolved. Problem List: 1. Alcohol withdrawal seizure 2. Transaminitis 3. Elevated CK Pain Ratin Tomorrow's Labs & Rationales: ICU bundle cbc Plan DVT/Prophylaxis: mechanical Code Status: Full Code
[2016-06-06 08:00] VITALS: BP 120/70
--- NOTE | 2016-06-06 09:35 | PN- CRCU ---
Subjective HPI/Critical Care Issues: The patient is now awake and alert. He reports feeling significantly improved. His withdrawal symptoms are improved as well. He denies any new complaints today. Objective Current Medications: Current Medications Sig/Yissel Start time Last Medication Dose Route Stop Time Status Admin Chlordiazepoxide HCl 50 MG TID 06/05 2200 AC 06/06 PO 0848 Chlordiazepoxide HCl 25 MG ONCE ONE 06/05 1815 DC 06/05 PO 06/05 1816 1817 Chlordiazepoxide HCl 25 MG TID 06/05 1000 DC 06/05 PO 1525 Fluoxetine HCl 60 MG DAILY 06/03 1000 DC 06/04 PO 0958 Folic Acid 1 MG DAILY 06/04 1259 AC 06/06 PO 0848 Haloperidol 1 MG Q6P PRN 06/05 1015 AC PO Lorazepam 100 MG Q6H 06/04 1030 DC 06/05 Sodium Chloride 1,000 ML IV 0004 Magnesium Sulfate 1 GM ONCE ONE 06/06 0830 AC 06/06 Dextrose/Water 100 ML IV 06/06 1229 0828 Melatonin 5 MG AT BEDTIME 06/03 0030 AC 06/05 PO 2145 Multivitamins 1 TAB DAILY 06/04 1259 AC 06/06 PO 0848 Nicotine 21 MG DAILY 06/04 1000 AC 06/06 TOP 0849 Ondansetron HCl 4 MG BID 06/03 2200 AC 06/06 PO 0848 Potassium Chloride 10 MEQ ONCE ONE 06/06 0830 DC IV 06/06 0831 Sodium Chloride 1,000 ML Q10H 06/04 1930 AC 06/06 IV 0013 Thiamine HCl 100 MG DAILY 06/04 1259 AC 06/05 Sodium Chloride 100 ML IV 06/06 1012 1435 Zolpidem Tartrate 5 MG AT BEDTIME NEED.. 06/02 2200 DC 06/03 PO 2232 Vital Signs & I&O Last 24 Hrs of Vitals and I&O: Vital Signs Date Time Temp Pulse Resp B/P Pulse O2 O2 Flow FiO2 Ox Delivery Rate 06/06 0557 70 20 111/53 06/06 0433 60 18 118/64 06/06 0015 98.4 73 18 128/70 06/05 2200 76 23 116/68 06/05 2000 99.1 90 22 120/76 06/05 2000 98 Room Air 06/05 1700 99.4 90 24 122/77 06/05 1600 99.4 86 23 120/70 01/04 1600 97.9 70 18 112/60 99 Room Air Room Air 06/05 1600 99 Room Air Room Air 06/05 1500 98.2 90 24 107/63 06/05 1400 97.9 90 24 116/56 06/05 1300 97.9 74 14 125/62 06/05 1200 97.9 70 18 112/60 06/05 1200 97 Room Air Room Air 06/05 1100 97.8 68 20 115/66 06/05 1000 97.8 78 17 105/51 Intake & Output 06/06 1600 06/06 0800 06/06 0000 Intake Total 1750 3450 Output Total 1200 3450 Balance 550 0 Intake, IV 1750 1950 Intake, Oral 1500 Output, Urine 1200 3450 Exam General Appearance: Awake, alert and oriented, appears comfortable Head: atraumatic, normal appearance Neck: supple Respiratory: normal breath sounds, no respiratory distress, lungs clear Cardiovascular: regular rate/rhythm, improved tachycardia Abdomen: normal bowel sounds, soft, non-tender Extremities: no edema Skin: intact, normal color, warm/dry Results Last 24 Hrs of Lab Results: Laboratory Tests 06/06/16 0400: Anion Gap 9, Estimated GFR > 60, Glucose 82, Calcium 8.0 L, Phosphorus 3.7, Magnesium 1.7, Total Bilirubin 0.7, AST 232 H, ALT 135 H, Creatine Kinase 36223 H, Albumin 3.1 L 06/05/16 2000: Anion Gap 12, Estimated GFR > 60, Glucose 80, Calcium 8.6, Phosphorus 4.2, Magnesium 1.6, Total Bilirubin 0.4, AST 314 H, ALT 159 H, Creatine Kinase 03804 H, Albumin 3.7 06/05/16 1245: Anion Gap 9, Estimated GFR > 60, BUN/Creatinine Ratio 17.1, Creatine Kinase 64908 H Impression/Plan Impression/Plan Impression/Plan: 1. Alcohol withdrawal/delirium tremens. 2. Rhabdomyolysis with hyperphosphatemia. 3. Polysubstance abuse. 4. Urinary retention. 5. Tachycardia which is now improved. 6. Transaminitis secondary to alcohol hepatitis; abdominal ultrasound consistent with a fatty liver. 7. Thrombocytopenia secondary to EtOH use. Recommendations: * Downgrade to GEN med. * Follow-up nephrology input regarding rhabdomyolysis. * Continue with aggressive electrolyte repletion. * Continue multivitamin, thiamine and folate. * Repeat CBC to check the patient's platelet count. * Continue CIWA scores and alcohol withdrawal pathway. * Psychiatry and social media assistant follow-up. * DVT prophylaxis at all times. * Continue all supportive care. Code Status: Full Code
[2016-06-06 10:00] VITALS: BP 125/67
--- NOTE | 2016-06-06 14:59 | NUR ---
Following patients progress as it relates to his detox. Markedly improved today; oriented to person and place; off on day but knows it is June. Sergio reports that while this is not his first detox, it is the first time he has had a seizure. His previous rehabs have been in [place] at "different places" and have all been for 30 days or more. When queried about what he was thinking about for aftercare he said that he was planning to live with his dad, and that his uncle, who has battled addiction would be taking him to meetings. I encouraged Sergio to consider a higher level of care; namely IOP here. Sergio did not respond one way or another to that, except to say that I had his permission to speak with his parents should they contact me. Follow to better assess aftercare plan needs.
[2016-06-06 16:00] VITALS: BP 128/74
[2016-06-07] VITALS: BP 130/70
[2016-06-07 06:16] LABS: ABSOLUTE BASOPHIL COUNT 0 /CUMM (0.0-0.2); ABSOLUTE EOSINOPHIL COUNT 0.1 /CUMM (0.0-0.7); ABSOLUTE GRANULOCYTE CT 2.5 /CUMM (1.4-6.5); ABSOLUTE LYMPH COUNT 1.5 /CUMM (1.2-3.4); ABSOLUTE MONOCYTE COUNT 0.5 /CUMM (0.10-0.60); BASOPHIL % 0.5 % (0.0-2.0); EOSINOPHIL % 1.6 % (0-5); GRANULOCYTE % 54.9 % (42.2-75.2); HEMATOCRIT 42.9 % (42-52); MEAN CORPUSCULAR HGB 33.4 PG (27.0-31.0); MEAN CORPUSCULAR HGB CONC 34.6 G/DL (33.0-37.0); MEAN CORPUSCULAR VOLUME 96.3 FL (80.0-94.0); MEAN PLATELET VOLUME 7.4 FL (7.4-10.4); PLATELET COUNT 137 /CUMM (130-400); RBC DISTRIBUTION WIDTH 14.8 % (11.5-14.5); RED BLOOD CELL CT 4.45 /CUMM (4.70-6.10); WHITE BLOOD CELL COUNT 4.6 /CUMM (4.8-10.8)
[2016-06-07 08:00] VITALS: BP 130/80
[2016-06-07 08:24] VITALS: BP 130/80
--- NOTE | 2016-06-07 08:27 | PN- Housestaff ---
Subjective Follow-up For: Alcohol withdrawl Substance abuse Complaints: no complaints Tele-Events Since Last Visit: Gen Coho Data hold Subjective: I saw and examined the patient today. He is feeling better everyday. alert and oriented, slept well. Review of Systems Constitutional: Reports: no symptoms, see HPI. Comments: ROS negative Objective Last 24 Hrs of Vital Signs/I&O Vital Signs Date Time Temp Pulse Resp B/P Pulse O2 O2 Flow FiO2 Ox Delivery Rate 06/07 1600 98.3 78 20 136/76 98 Room Air 06/07 823 96.9 78 18 130/80 100 Room Air 06/07 799 96.4 78 18 130/80 06/07 599 70 06/07 0400 80 06/07 0000 98.2 72 18 130/70 06/07 0000 98.2 72 18 130/70 98 Room Air 06/06 1999 72 Intake & Output 06/07 1600 06/07 0806/07 0000 Intake Total 2100 2375 2353 Output Total 4100 2400 4300 Intake, IV 1600 2135 1853 Intake, Oral 500 240 500 Number 1 0 0 Bowel Movements Output, Urine 4100 2400 4300 Physical Exam General Appearance: Alert, Oriented X3, Cooperative, No Acute Distress Skin: No Rashes HEENT: Atraumatic, PERRLA Neck: Supple, No JVD Cardiovascular: Regular Rate, Normal S1, Normal S2, No Murmurs Lungs: Clear to Auscultation, Normal Air Movement Abdomen: Normal Bowel Sounds, Soft, No Tenderness Neurological: Normal Gait, Normal Speech, Strength at 5/5 X4 Ext, Normal Tone, Sensation Intact Extremities: No Clubbing, No Cyanosis, No Edema Vascular: Pulses Symmetrical Current Medications: Current Medications Sig/Yissel Start time Last Medication Dose Route Stop Time Status Admin Chlordiazepoxide HCl 25 MG DAILY 06/09 1000 AC PO 06/09 1001 Chlordiazepoxide HCl 25 MG BID 06/08 1000 AC PO 06/08 220 Chlordiazepoxide HCl 25 MG TID 06/07 1600 r 06/07 PO 06/08 0000 1600 Chlordiazepoxide HCl 50 MG TID 06/05 2200 DC 06/07 PO 0855 Docusate Sodium 100 MG DAILY NEEDED PRN 06/06 1300 AC PO Fluoxetine HCl 20 MG DAILY 06/08 1000 AC PO 06/14 1001 Folic Acid 1 MG DAILY 06/04 1259 AC 06/07 PO 0854 Haloperidol 1 MG Q6P PRN 06/05 1015 AC PO Magnesium Oxide 400 MG ONE ONE 06/06 2029 DC 06/06 PO 06/06 Magnesium Sulfate 1 GM ONCE ONE 06/06 2014 CAN Dextrose/Water 100 ML IV 06/07 0014 Melatonin 5 MG AT BEDTIME 06/03 0030 AC 06/06 PO 2234 Multivitamins 1 TAB DAILY 06/04 1259 AC 06/07 PO 0855 Nicotine 21 MG DAILY 06/04 1000 AC 06/07 TOP 0859 Ondansetron HCl 4 MG BID 06/03 2200 AC 06/07 PO 0855 Polyethylene Glycol 17 GM DAILY 06/07 1000 AC 06/07 PO 0859 Potassium Chloride 20 MEQ DAILY 06/07 1000 AC 06/07 PO 0859 Senna/Docusate Sodium 1 TAB BID 06/07 1000 AC 06/07 PO 0856 Sodium Chloride 1,000 ML Q10H 06/04 1930 AC 06/07 IV 1645 Thiamine HCl 100 MG DAILY 06/07 1000 AC 06/07 PO 0855 Last 24 Hrs of Lab/Cameron Results Last 24 Hrs of Labs/Mics: Laboratory Tests 06/07/16 0540: Anion Gap 8, Estimated GFR > 60, Glucose 87, Calcium 8.4, Phosphorus 4.2, Magnesium 2.0, Total Bilirubin 0.5, AST 163 H, ALT 134 H, Creatine Kinase 4296 H, Albumin 3.5, CBC w Diff NO MAN DIFF REQ, RBC 4.45 L, MCV 96.3 H, MCH 33.4 H, RDW 14.8 H, MPV 7.4, Gran % 54.9, Lymphocytes % 32.0, Monocytes % 11.0 H, Eosinophils % 1.6, Basophils % 0.5, Absolute Granulocytes 2.5, Absolute Lymphocytes 1.5, Absolute Monocytes 0.5, Absolute Eosinophils 0.1, Absolute Basophils 0, PUBS MCHC 34.6 Orders CIWA Score (last 24 hrs): normal Assessment/Plan Assessment: Patient is a very young 25 YO M with PMH significant for depression, anxiety, substance abuse, multiple admissions at rehabilitation for prescription narcotics, cannabis, alcohol, and heroine, who presents with CC seizure. Incidentally, during workup he mentioned 40 pound weight loss of unknown etiology, and he endorses chronic nausea vomiting and diarrhea. He is initially admitted to [facility] for possible alcohol/benzo withdrawl. Yesterday night patient is transfered to ICU as he needs ativan drip for increased agitation. Today he is much more oriented and alert. PLAN Alcohol /benzo withdrawl vs Intoxication with sympathomimetic agent * Agitation, euphoria with Dilated pupils - currently stable * placed on librium 25mg TID - tolerating well with very low CIWA scores. * Haldol 1mg Q6 PRN for agitation. * Psych consulted - on board. * OFF restraints and sitter. Elevated CK with transaminitis * CK level Today is around 4000 still getting fluids @150ml/hr. * Secondary to seizure vs a combination of dehydration & pulling restraints. * He feels his muscles are sore . * Removed butler today and he started voiding well. Persistant tachycardia and high blood pressure resolved. Problem List: 1. Alcohol withdrawal seizure 2. Transaminitis 3. Elevated CK Pain Ratin Pain Location: n/a Pain Goal: Pain 4 or less Pain Plan: Tylenol PRN Tomorrow's Labs & Rationales: ICU bundle cbc CPK
--- NOTE | 2016-06-07 10:22 | PN- Pulmonary ---
Subjective HPI/Critical Care Issues: The patient is awake and alert. He reports that he is feeling well. He is no longer experiencing significant withdrawal symptoms. He is tolerating IV fluids well. His CPK is now 4296. There were no overnight events reported. Objective Current Medications: Current Medications Sig/Yissel Start time Last Medication Dose Route Stop Time Status Admin Chlordiazepoxide HCl 50 MG TID 06/05 2200 AC 06/07 PO 0855 Docusate Sodium 100 MG DAILY NEEDED PRN 06/06 1300 AC PO Folic Acid 1 MG DAILY 06/04 1259 AC 06/07 PO 0854 Haloperidol 1 MG Q6P PRN 06/05 1015 AC PO Magnesium Oxide 400 MG ONE ONE 06/06 2030 DC 06/06 PO 06/06 2031 2239 Magnesium Sulfate 1 GM ONCE ONE 06/06 2015 CAN Dextrose/Water 100 ML IV 06/07 0014 Magnesium Sulfate 1 GM ONCE ONE 06/06 0830 DC 06/06 Dextrose/Water 100 ML IV 06/06 1229 0828 Melatonin 5 MG AT BEDTIME 06/03 0030 AC 06/06 PO 2234 Multivitamins 1 TAB DAILY 06/04 1259 AC 06/07 PO 0855 Nicotine 21 MG DAILY 06/04 1000 AC 06/07 TOP 0859 Ondansetron HCl 4 MG BID 06/03 2200 AC 06/07 PO 0855 Polyethylene Glycol 17 GM DAILY 06/07 1000 AC 06/07 PO 0859 Potassium Chloride 20 MEQ DAILY 06/07 1000 AC 06/07 PO 0859 Senna/Docusate Sodium 1 TAB BID 06/07 1000 AC 06/07 PO 0856 Senna/Docusate Sodium 2 TAB ONCE ONE 06/06 1300 DC 06/06 PO 06/06 1301 1443 Sodium Chloride 1,000 ML Q10H 06/04 1930 AC 06/07 IV 0642 Thiamine HCl 100 MG DAILY 06/07 1000 AC 06/07 PO 0855 Vital Signs & I&O Last 24 Hrs of Vitals and I&O: Vital Signs Date Time Temp Pulse Resp B/P Pulse O2 O2 Flow FiO2 Ox Delivery Rate 06/07 08 96.9 78 18 130/80 100 Room Air 06/07 0600 70 06/07 0400 80 / 0000 98.2 72 18 130/70 06/07 0000 98.2 72 18 130/70 98 Room Air 06/06 2000 72 06/06 1600 99.0 68 20 128/74 96 Room Air Intake & Output 06/07 1600 06/07 0800 06/07 0000 Intake Total 2375 2353 Output Total 2400 4300 Balance - Intake, IV 2135 1853 Intake, Oral 240 500 Number 0 0 Bowel Movements Output, Urine 2400 4300 Exam General Appearance: Awake, alert and oriented, appears comfortable Head: atraumatic, normal appearance Neck: supple Respiratory: normal breath sounds, no respiratory distress, lungs clear Cardiovascular: regular rate/rhythm, improved tachycardia Abdomen: normal bowel sounds, soft, non-tender Extremities: no edema Skin: intact, normal color, warm/dry Impression/Plan Impression/Plan Impression/Plan: 1. Alcohol withdrawal/delirium tremens - improved. 2. Rhabdomyolysis with hyperphosphatemia - improving. 3. Polysubstance abuse. 4. Urinary retention. 5. Transaminitis secondary to alcohol hepatitis; abdominal ultrasound consistent with a fatty liver. Recommendations: * Discontinue butler. * Request nursing to do voiding trials. * Monitor strict I & O s. * Decrease IV fluid to 150 ML per hour. * Follow daily CPKs until improved. * Continue multivitamin, thiamine and folate. * Continue CIWA scores and alcohol withdrawal pathway. * Please request psychiatry evaluation so patient can be placed back on his medication regimen and a plan can be determined for his alcohol and substance abuse. * Decrease Librium to 25 mg by mouth 3 times a day. * DVT prophylaxis at all times. * Continue all supportive care. * Discussed issues with patient's father at bedside.
[2016-06-07 16:00] VITALS: BP 136/76
--- NOTE | 2016-06-07 18:13 | PN- Psychiatry ---
Assessment/Plan Impression: The patient's delirium and agitation secondary to alcohol detox has resolved. The patient is no longer in any restraints. He is in agreement to come to [facility] IOP program, although he lives in [place]. In the event that medical social work does not visit the patient to arrange a program near her to his home, we will get him an appointment at the [facility] program, which is abstinence based, and, therefore, will not allow him to attend while on benzodiazepines or opiates. We had a discussion about the hazards of benzodiazepines in combination with alcohol, and the appropriate treatment for anxiety and panic, which consists of psychotherapy and medication, such as SSRI. He verbalizes understanding of this concept, and also that benzodiazepines are contraindicated in patients who have alcohol use disorder. The patient seems motivated for treatment. The patient's elevated CK is resolving, and also, AST and ALT are elevated, but resolving. CIWA from 1400 06/07/16: 5-3-1-3-5-8-0-0-0-1 VS as of 0824 06/07/16: 130/80, 78, 96.9, 18 RR, 100% at room air The patient is receiving Librium 25 mg PO every 8 hours for alcohol withdrawal management. The patient should taper off all benzodiazepines before discharge, as they are contraindicated in patients who have alcohol use disorder. Also, most intensive outpatient programs will be unable to admit the patient while on those medications. He may find Neurontin or Atarax beneficial for anxiety. While the patient has had some success on Prozac 60 mg daily, this medication may make him more nervous. There are several other possible SSRIs, and certainly sertraline/ Zoloft is a reasonable choice. Although we would prefer to treat the patient's insomnia with melatonin or ramelteon, with trazodone as an alternative, the patient reports that melatonin 5 mg has not been working for him, and trazodone caused him to have "weird dreams." He reports that he had some success on quetiapine/Seroquel for insomnia, and off label use. The patient should be instructed not to resume his home medications, including Xanax, Prozac or Ambien, upon discharge. Please provide a discharge summary to his psychiatrist, Saritha Alcala MD, FAPA. [address], [address] [place] [id number], Suggestion: 1. Taper all benzodiazepines to off before discharge. 2. For panic or anxiety, offer the patient gabapentin, starting at 100 mg by mouth up to 3 times per day; this may be advanced to 300 mg by mouth up to 3 times per day if tolerated. a. An alternative to this medication would be hydroxyzine 3. Please continue to administer daily thiamine, folic acid and multivitamin. 4. Please hold the following medications: Fluoxetine/Prozac, zolpidem/Ambien. 5. Please add sertraline/Zoloft 25 mg by mouth daily, which can be advanced after one week. 6. Follow-up EKG 7. For insomnia, consider Seroquel 25 mg by mouth at bedtime. Caution the patient against driving or operating heavy machinery while under the influence of this medication. Warned the patient of the risks including movement disorder such as tardive dyskinesia. This is an off label use of this medication. Hold this medication for arrhythmia or QTC greater than 475 ms. a. An alternative to this medication would be hydroxyzine 8. The patient has an intensive outpatient program here at [facility] on 06/12/2016, at 1015, with Maria Guadalupe, at [address] [place] [address] in [place]. He is to bring his photo ID and his insurance card. The telephone number for [facility] is [phone]. The patient's cell phone number is [phone]; he reports that he does not normally answer unrecognized numbers, but messages can be left, and he will return the call. We will continue to follow along with you. Thank you for asking us to participate in Sergio's care. Carlo Lee APRN, pager [phone] Subjective Subjective: I revisited the patient today, 06/07/16, at 1600 in ICU room 112. His supportive mother and girlfriend were present, left the room during the interview, and returned to participate with the patient's permission. He is alert and oriented. He denies auditory, tactile or visual hallucinations, and presents no myke delusions. The patient denies suicidal or homicidal ideation. He reports a history of suicide attempt one half year ago by cutting his left arm; the patient is right-handed. After this event, for which she states he received no medical treatment, he reports that he went to a psychiatrist in [place], Dr. Alcala, who has been prescribing his Prozac and Xanax. the patient reports he is been taking Xanax 1 mg 3 times a day on a regular basis for panic, which is usually ordered on a PRN basis as a rescue medication. He reports that he takes Ambien for sleep, and usually has grogginess in the morning from it. He reports that on trazodone, he had weird dreams. He states that Seroquel at a low dosage worked for him, with some grogginess in the morning. The patient describes panic attacks, usually in the setting of large crowds of people, which is kept him in his house for long periods of time. Objective Last 24 Hrs of Vital Signs/I&O Vital Signs Date Time Temp Pulse Resp B/P Pulse O2 O2 Flow FiO2 Ox Delivery Rate 06/07 823 96.9 78 18 130/80 100 Room Air 06/07 799 96.4 78 18 130/80 06/07 0500 70 06/07 0400 80 / 0000 98.2 72 18 130/70 06/07 0000 98.2 72 18 130/70 98 Room Air 06/06 1999 72 Intake & Output 06/07 1600 06/07 0800 06/07 0000 Intake Total 2100 2375 2353 Output Total 4100 2400 4300 Balance Intake, IV 1600 2135 1853 Intake, Oral 500 240 500 Number 1 0 0 Bowel Movements Output, Urine 4100 2400 4300
[2016-06-07 20:00] VITALS: BP 138/70
[2016-06-08 00:03] VITALS: BP 140/68
[2016-06-08 08:09] VITALS: BP 138/78
[2016-06-08 08:12] LABS: ABSOLUTE BASOPHIL COUNT 0 /CUMM (0.0-0.2); ABSOLUTE EOSINOPHIL COUNT 0.1 /CUMM (0.0-0.7); ABSOLUTE GRANULOCYTE CT 2.5 /CUMM (1.4-6.5); ABSOLUTE LYMPH COUNT 1.8 /CUMM (1.2-3.4); ABSOLUTE MONOCYTE COUNT 0.6 /CUMM (0.10-0.60); BASOPHIL % 0.6 % (0.0-2.0); EOSINOPHIL % 2.2 % (0-5); GRANULOCYTE % 50.1 % (42.2-75.2); HEMATOCRIT 44.2 % (42-52); MEAN CORPUSCULAR HGB 33.5 PG (27.0-31.0); MEAN CORPUSCULAR HGB CONC 34.5 G/DL (33.0-37.0); MEAN PLATELET VOLUME 7.4 FL (7.4-10.4); PLATELET COUNT 162 /CUMM (130-400); RBC DISTRIBUTION WIDTH 14.6 % (11.5-14.5); RED BLOOD CELL CT 4.55 /CUMM (4.70-6.10)
[2016-06-08 16:00] VITALS: BP 136/82
[2016-06-08 16:14] VITALS: BP 136/82
--- NOTE | 2016-06-08 18:54 | PN- Att Addend ---
Attending Addendum Attending Brief Note 25-year-old male with a history significant for anxiety/depression/suicide, polysubstance abuse is being admitted on the floor for alcohol abuse and withdrawal. Patient was initially admitted to the floor for alcohol withdrawals but was then upgraded to ICU because of escalation of withdrawal symptoms requiring an 81 drip. In the ICU he also developed rhabdomyolysis with elevated CPK but is trending down due to aggressive hydration. Psychiatry has been closely following up on the patient. The plan is to taper all benzodiazepines before discharge. On the recommendation of psych are being followed.
[2016-06-08 23:58] VITALS: BP 128/80
[2016-06-09] VITALS: BP 128/80
[2016-06-09 08:00] VITALS: BP 120/70
[2016-06-09 08:49] VITALS: BP 120/70
--- NOTE | 2016-06-09 08:58 | PN- Housestaff ---
Subjective Follow-up For: ETOH withdrawal Subjective: No events overnight. Overnight, CIWA scores were 0. He received his last dose of Librium 25 mg PO today. Patient is lying comfortably in bed with no complaints. States that he wants to take a shower today. Review of Systems Constitutional: Reports: see HPI. Objective Last 24 Hrs of Vital Signs/I&O Vital Signs Date Time Temp Pulse Resp B/P Pulse O2 O2 Flow FiO2 Ox Delivery Rate 06/09 0849 97.5 62 18 120/70 98 Room Air 06/09 0000 97.9 72 20 128/80 06/08 2358 98.2 72 19 128/80 96 Room Air 06/08 1614 98.1 67 23 136/82 98 Room Air 06/08 1600 98.1 67 23 136/82 Intake & Output 06/09 1600 06/09 0800 06/09 0000 Intake Total 1200 2000 Output Total Balance 1200 2000 Intake, IV 1200 1200 Intake, Oral 800 Physical Exam General Appearance: Alert Current Medications: Current Medications Sig/Yissel Start time Last Medication Dose Route Stop Time Status Admin Chlordiazepoxide HCl 25 MG DAILY 06/09 1000 DC PO 06/09 1001 Chlordiazepoxide HCl 25 MG BID 06/08 1000 DC 06/08 PO 06/08 2201 2047 Docusate Sodium 100 MG DAILY NEEDED PRN 06/06 1300 AC PO Folic Acid 1 MG DAILY 06/04 1259 AC 06/08 PO 0853 Gabapentin 100 MG Q8 06/08 1400 AC 06/09 PO 0819 Gabapentin 100 MG Q8 PRN 06/07 2145 DC PO 06/08 1359 Haloperidol 1 MG Q6P PRN 06/05 1015 AC PO Melatonin 5 MG AT BEDTIME 06/03 0030 AC 06/08 PO 2047 Multivitamins 1 TAB DAILY 06/04 1259 AC 06/08 PO 0853 Nicotine 21 MG DAILY 06/04 1000 AC 06/08 TOP 0854 Ondansetron HCl 4 MG BID 06/03 2200 AC 06/08 PO 2047 Polyethylene Glycol 17 GM DAILY 06/07 1000 AC 06/07 PO 0859 Potassium Chloride 20 MEQ DAILY 06/07 1000 AC 06/08 PO 0854 Quetiapine Fumarate 25 MG AT BEDTIME 06/08 2200 DC PO Quetiapine Fumarate 25 MG AT BEDTIME 06/08 0200 AC 06/08 PO 2047 Senna/Docusate Sodium 1 TAB BID 06/07 1000 AC 06/08 PO 2047 Sertraline HCl 25 MG DAILY 06/08 1000 AC 06/08 PO 1042 Sodium Chloride 1,000 ML Q10H 06/04 1930 AC 06/09 IV 0044 Thiamine HCl 100 MG DAILY 06/07 1000 AC 06/08 PO 0853 Lines/Diet/Fluids Lines: peripheral lines Assessment/Plan Assessment: Patient is a very young 25 YO M with PMH significant for depression, anxiety, substance abuse, multiple admissions at rehabilitation for prescription narcotics, cannabis, alcohol, and heroine, who presents with CC seizure. Incidentally, during workup he mentioned 40 pound weight loss of unknown etiology, and he endorses chronic nausea vomiting and diarrhea. He is initially admitted to [facility] for possible alcohol/benzo withdrawl. Yesterday night patient is transfered to ICU as he needs ativan drip for increased agitation. Today he is much more oriented and alert. PLAN Alcohol /benzo withdrawl vs Intoxication with sympathomimetic agent * He received his last dose of Librium 25 mg PO this AM. Ovenight, CIWA scores have been 0. * Elevated CK with transaminitis * CK level yesterday trended down to 1154 from 4296 the previous day. * Currently receiving NS for hydration. * Secondary to seizure vs a combination of dehydration & pulling restraints. Persistant tachycardia and high blood pressure resolved. Problem List: 1. Alcohol withdrawal seizure Pain Ratin Pain Location: None Pain Goal: Pain 4 or less Pain Plan: Per EMR Tomorrow's Labs & Rationales: Not needed as all labs are currently trending towards normal. DVT/Prophylaxis: pharmacological
[2016-06-09 10:00] VITALS: BP 120/70
[2016-06-09] MEDS ORDERED: ONE DAILY MULT1 EAC2 PO (10:17)
[2016-06-09] MEDS ORDERED: SERTRALINE HCL25 MG PO (10:17)
[2016-06-09] MEDS ORDERED: VITAMIN B-1100 MG PO (10:17)
[2016-06-09] MEDS ORDERED: FOLIC ACID1 M1 PO (10:17)
[2016-06-09] MEDS ORDERED: QUETIAPINE FUMA25 M1 PO (10:17)
--- NOTE | 2016-06-09 10:20 | Patient Discharge Instructions ---
Psych Discharge Inst General Discharge Information You were seen/treated for: Alcohol Withdrawal Special Instructions: Please make an appointment to see your PCP within two weeks from discharge. You have an IOP appointment scheduled for 06/12. Diet Continue normal diet: Yes Activity Full Activity/No Limits: Yes Nursing Information Vital Signs and Vaccine Data Vital Signs Result Date Time Pulse Ox 98 06/09 848 B/P 120/70 06/09 848 O2 Delivery Room Air 06/09 848 Temp 97.5 06/09 848 Pulse 62 06/09 848 Resp 18 06/09 848 O2 Flow Rate Room Air 06/05 1600 Last BM: 06/07/16 Date of last Pneumonia Vaccine (if documented): Date of last Influenza Vaccine (if documented):
[2016-06-09 12:00] VITALS: BP 120/70
--- NOTE | 2016-06-09 12:25 | PN- Att Addend ---
Attending Addendum Attending Brief Note 25-year-old male with a history significant for anxiety/depression/suicide, polysubstance abuse is being admitted on the floor for alcohol abuse and withdrawal. Patient was initially admitted to the floor for alcohol withdrawals but was then upgraded to ICU because of escalation of withdrawal symptoms requiring anativa drip. In the ICU he also developed rhabdomyolysis with elevated CPK but his numbers are well trending down due to aggressive hydration. Psychiatry has been closely following up on the patient. The plan is to taper all benzodiazepines before discharge. Patient was seen and examined by the bedside. He completed his course of Ativan taper and is ready to be discharged. I had a lengthy discussion with the family this morning about the future care of plan which is actively involving the psychiatric team. Discussed with them about the change in medications and their indications. Patient has a follow-up appointment with the psychiatry next week and would follow-up with me as his primary care physician.
--- NOTE | 2016-06-12 20:06 | Discharge Summary ---
Visit Information Visit Dates Admission Date: 06/02/16 Discharge Date: 06/09/16 Hospital Course Course Attending Physician: Arti ELAM MD Primary Care Physician: AL KRISHNA MD Consulting Request: 1 Consulting Specialty: Psychiatry Consulting Physician: Rosa vale APRN Reason for Consult: substance abuse Consulting Request: 2 Consulting Specialty: Nephrology Consulting Physician: Reason for Consult: elevated CK Hospital Course: Patient is a very young 25 YO M with PMH significant for depression, anxiety, substance abuse, multiple admissions at rehabilitation for prescription narcotics, cannabis, alcohol, and heroine, who presents with CC seizure. Incidentally, during workup he mentioned 40 pound weight loss of unknown etiology, and he endorses chronic nausea vomiting and diarrhea at the time of admission. His urine is initially postive for cannabis and he was admitted to [facility] for possible alcohol/benzo withdrawl. On 06/03/16 night patient is transfered to ICU as he needs ativan drip for increased agitation after his girlfiend visited him during day hours. The following issues are addressed in ICU Alcohol /benzo withdrawl vs Intoxication with sympathomimetic agent Patient is very Agitated, euphoric with Dilated pupils at the time of transfer, he was placed on ativan drip with a max upto 26mcg/hr along with 7.5mg of haldol which made him sedated for several hours on 04 june. By evening he is much more awak, alert and oriented X3. However he is very agitated placed on 4point restraints. Next day he is off the restraints on a atilio vest with librium taper 50mg TID followed by 25mg TID. He tolerated it very well with low CIWA scores. he is also placed on haldol 1mg Q6 as needed basis. He also found to have urinary retention for which he was straight cathed intially and placed on butler subsequently. butler is discontinued after 3 days and able to void on his own. Elevated CK with transaminitis His CK level on 06/04/16 is found to be >38210 with AST & ALT in the range of 500's. He is aggressively hydrated with NS @250ml/hr . Secondary to seizure vs a combination of dehydration & pulling restraints. However his CK was trended down slowly with a level of 1000 at the time of discharge. Nephro is consulted however his creatinine is always within normal limits and no bicarbonate is suggested. Persistant tachycardia and high blood pressure At the time of transfer he is persistantly tachycardic and hypertensive. Cardio is consulted. They suggested to go with a max benzo taper as it was due to withdrawl and to use low dose of metoprolol as needed. Resolved after a day. subseqently once stabilized he was transfered [facility] where extensive discussions are made about after care and displacement issues. engthy discussion with the family this morning about the future care of plan which is actively involving the psychiatric team. Patient has a follow-up appointment with the psychiatry next week and would follow-up with Dr. Witt as his primary care physician. Complications: Transfered to ICU for ativan drip Allergies: Coded Allergies: No Known Allergies (06/02/16) Significant Procedures: None Pertinent Lab Results: significant are Toxicology positive for cannabis and Elevated CK Disposition Summary Disposition Principal Diagnosis: Substance abuse Additional Diagnosis: Elevated CK - possible rhabdomyolysis Discharge Disposition: home or self care Discharge Instructions General Discharge Information Code Status: Full Code Patient's Diet: regular diet Patient's Activity: full activity Follow-Up Instructions/Appts: Please f/u with PCP in a week Please f/u with Psychiatry in a week. Medications at Discharge Discharge Medications: Stop taking the following medications: Zolpidem Tartrate (Ambien) 5 MG TABLET ORAL Every night as needed Fluoxetine HCl (Fluoxetine HCl) 20 MG TABLET ORAL EVERY 8 HOURS Alprazolam (Xanax) 1 MG TABLET ORAL THREE TIMES DAILY Start taking the following new medications: Sertraline HCl (Sertraline HCl) 25 MG TABLET 1 Tablet ORAL DAILY Days = 10 No Refills Comments: Last Taken:06/09/16 Time:10:00 Quetiapine Fumarate (Quetiapine Fumarate) 25 MG TABLET 1 Tablet ORAL AT BEDTIME Days = 14 No Refills Instructions: please use caution while driving or operating heavy machinery while under the influence of this medication. Folic Acid (Folic Acid) 1 MG TABLET 1 Tablet ORAL DAILY Days = 60 No Refills Comments: Last Taken:06/09/16 Time:10:00AM Thiamine HCl (Vitamin B-1) 100 MG TABLET 1 Tablet ORAL DAILY Days = 60 No Refills Comments: Last Taken:06/09/16 Time:10:00 Multivitamin (One Daily Multivitamin) 1 EACH TABLET 1 Tablet ORAL DAILY Days = 60 No Refills Comments: Last Taken:06/09/16 Time:10:00AM Copies To: Arti ELAM MD; MANNY WITT MD; WARREN VANN APRN Attending MD Review Statement Documenting Attending: MANNY WITT MD
== END 2016-06-09 14:05 | DRG 897 ==
LOC: ERH 14:32 → ERHI 16:51 → 2NB 16:51 → CRI 06-04 04:18 → 2NB 06-07 19:54
PROVIDERS: Internal Medicine; Physician Assistant Surgical; Student in an Organized Health Care Education/Training Program; ADMIT Internal Medicine
DX: F10.239 Alcohol dependence with withdrawal, unspecified (principal); R56.9 Unspecified convulsions; F15.10 Other stimulant abuse, uncomplicated; Y90.0 Blood alcohol level of less than 20 mg/100 ml; R63.4 Abnormal weight loss; F17.210 Nicotine dependence, cigarettes, uncomplicated
CPT/HCPCS: 2NBP; 2NBSP; CCU; 36415; 80307; 81001; 82436; 87086; 87389; 93005; 93010; 96374; 96375; 99232; 99233; G0480; J1630; J1644; J1885; J2060; J2405; J3101; J3490; J7040; J7120; Q2036